=== PATIENT | male | born 1955 | race Caucasian/White ===

== ENCOUNTER 2018-03-26 05:46 | Inpatient (IN) | payer BC ==
--- NOTE | 2018-03-21 22:35 | HP ---
H&P (Free Text) History and Physical: Date of Visit: March 14, 2018 Patient Name: Andrew Argueta : 1955 Gender: male Age: 62 years Primary Care Physician: Jung Kiran MD HISTORY AND PHYSICAL CC: H&P prior to undergoing a left total knee replacement. Left knee pain. PROCEDURE: Left total knee replacement. DATE OF SURGERY: 03/26/2018 ATTENDING SURGEON: Milton Matthews MD HPI: Mr. Argueta is a pleasant 62-year-old gentleman who presents today for routine history and physical examination prior to undergoing a left total knee replacement on 03/26/[address] Matthews. The patient has been having bilateral knee pain for several years, which is worsening, and x-rays show that the patient has severe osteoarthritis. He has failed conservative treatment. He has elected to undergo a left total knee replacement by Dr. Matthews on 03/26/2018. PAST MEDICAL HISTORY: 1. Atrial fibrillation, on Coumadin. 2. Heart murmur since young adult. 3. Hypertension. 4. Morbid obesity. 5. Congestive heart failure. 6. Sleep apnea. 7. History of pulmonary embolism. 8. Proteinuria. 9. Glucose intolerance. 10. Recurrence of cellulitis on abdomen and lower extremities. 11. Aortic sclerosis. 12. Bilateral lower extremity edema. CURRENT MEDICATIONS: 1. Amlodipine 5 mg 2 tablets by mouth daily. 2. Inspra 25 mg 2 tablets by mouth every day. 3. Liseth 50 mg 2 tablets p.o. p.r.n. 4. Coumadin as directed, currently taking 11 mg daily. 5. Fluocinonide 0.05% b.i.d. to rash p.r.n. 6. CPAP. 7. Doxycycline 50 mg 1 tablet p.o. nightly. 8. Omeprazole 20 mg 1 tablet by mouth daily. 9. Ibuprofen p.r.n. 10. Vitamin D3 maximum strength 1 tablet daily. 11. Flintstones Complete Vitamins. ALLERGIES: 1. Keflex, which causes hives. 2. Fish oil, which causes hives. 3. Norvasc, which causes periodontal reaction. 4. Clindamycin. PAST SURGICAL HISTORY: 1. Adipose resection with panniculectomy, flank resections. 2. Gastric band in 2007. 3. Cholecystectomy in 2009. 4. Lap band removal in 2012. 5. Gastric sleeve in 10/2013. 6. Cataract resection in 2013. FAMILY HISTORY: Father - Lung cancer. Mother - Brain cancer. Paternal grandfather - Stroke. Paternal grandmother - Cancer. Maternal grandmother - Hypertension and diabetes. SOCIAL HISTORY: The patient is currently , living with his . 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 No smoking. No drug use. Rare alcohol use. The patient exercises regularly and is currently swimming to decrease his weight prior to his knee replacement. Date: 03/14/2018 Was the patient queried about smoking behavior? Yes No Does the patient currently smoke? Smoking: Patient has never smoked. ROS: GENERAL: Denies lightheadedness, dizziness, syncopal episodes. HEENT: Denies headaches, migraines, ear complaints. CARDIAC: Denies heart palpitations, history of atrial fibrillation, history of congestive heart failure. Denies history of [place]. PULMONARY: Positive shortness of breath with activity. No chronic cough. No history of asthma. ABDOMEN: Denies or weakness with exertion. GI: Negative for nausea, vomiting, constipation, and diarrhea. Positive for GERD. : Negative for BPH, urinary frequency, urgency, history of UTIs or kidney stones. INFECTIOUS DISEASE: History of cellulitis on abdomen. Denies MRSA, VRE, hepatitis or HIV. ENDOCRINE: Negative for thyroid disease. Positive for glucose intolerance. NEUROLOGIC: Denies paresthesias, numbness, tingling. MUSCULOSKELETAL: Positive for bilateral knee pain. HEMATOLOGIC: Positive for PE in 2003. Negative for anemia. Vitals: Ht: 75.5" Wt: 444lb 2oz Pulse: 72 BP: 156/84 Resp: 14 T: 98.0 Pain Level: 0 BMI : 54.8 EXAM: GENERAL: Well appearing, no acute distress. Alert and oriented. Appears slightly older than his stated age. Obese. HEENT: Normocephalic, atraumatic. Trachea midline. CARDIAC: Regular rate and rhythm. No murmurs, gallops or rubs. PULMONARY: Diminished lung sounds bilaterally, likely due to obesity. No crackles, rhonchi or wheezes. ABDOMEN: Obese, nontender, nondistended. BILATERAL LOWER EXTREMITIES: With mild to moderate edema, hyperpigmentation from mid calf down with multiple nodules seen. Left knee with range of motion 0 -120 degrees. No instability with valgus or varus stresses. Tenderness along the medial and lateral joint lines. Positive patellar grind. STUDIES: X-rays were obtained of the left knee and reviewed by Dr. Matthews. ASSESSMENT: Left knee end stage osteoarthritis. PLAN: The patient is currently scheduled to undergo a left knee replacement on 03/26/2018. He has undergone extensive preoperative testing. He was seen by his primary care doctor, Dr. Kiran, who cleared the patient. He will be transitioned from Coumadin to Lovenox preoperatively and will be given either Eliquis or Xarelto postoperatively. He was seen by his paper sealer, Dr. Hammond , who believed that he was at a low risk for cardiac morbidity and mortality but did recommend restarting Coumadin or Lovenox as soon as possible postoperatively, as well as watching for sleep apnea and bradycardia preoperatively and intraoperatively, and reducing his amlodipine if low blood pressures are an issue. He was also seen by Dr. Carlos due to his hyperpigmentation and skin lesions, who felt that the patient would need vein stripping after his bilateral knee replacements. Biopsies were obtained of the patient's lower extremities and returned as negative. The patient was educated to bring the CPAP with him preoperatively. He had dental work done on 2017 with no sign of infection, however to have a replaced filling.
[2018-03-26] MEDS ORDERED: Famotidine IV* 10 MG/ML 2 ML (20 mg) ONE (05:57)
[2018-03-26] MEDS ORDERED: Buffered Lidocaine 0.9% SYRIN* 5 ML/SYR SYRINGE ONE (05:57)
[2018-03-26] MEDS ORDERED: Metoclopramide TAB* 10 MG ONE (05:57)
[2018-03-26] MEDS ORDERED: Gabapentin CAP(*) 300 MG ONE (05:57)
[2018-03-26] MEDS ORDERED: Gabapentin CAP(*) 300 MG PO ONE (06:00)
[2018-03-26] MEDS ORDERED: Famotidine IV* 10 MG/ML 2 ML (20 mg) IV ONE (06:00)
[2018-03-26] MEDS ORDERED: Metoclopramide TAB* 10 MG PO ONE (06:00)
[2018-03-26] MEDS ORDERED: Buffered Lidocaine 0.9% SYRIN* 5 ML/SYR SYRINGE INTRADERM ONE (06:00)
[2018-03-26] MEDS ORDERED: VANCOMYCIN IVPB ONE ×2 (06:00)
[2018-03-26 06:48] LABS: INR 1.06 (0.77-1.02)
[2018-03-26] MEDS ORDERED: Lidocaine 2% PF * 5 ML VIAL ONE (07:07)
[2018-03-26] MEDS ORDERED: ROPIVACAINE 5 MG/ML 30 ML BTL (0.5%) ONE (07:07)
[2018-03-26] MEDS ORDERED: Propofol* 10 MG/ML 20 ML BTL IV PUSH ONE (07:07)
[2018-03-26] MEDS ORDERED: fentaNYL* 50 MCG/ML 5 ML VIAL (250 MCG VIAL) ONE ×2 (07:07→08:21)
[2018-03-26] MEDS ORDERED: Midazolam* 1 MG/ML 10 ML VIAL (10 MG) ONE (07:07)
[2018-03-26] MEDS ORDERED: Dexamethasone IV* 4 MG/ML 1 ML (4 MG) ONE (07:07)
[2018-03-26] MEDS ORDERED: Rocuronium* 10 MG/ML VIAL ONE (07:37)
[2018-03-26] MEDS ORDERED: Bupivacaine 0.5% PF 10 ML VIAL INJ ONE ×2 (08:01→08:02)
[2018-03-26] MEDS ORDERED: Lidocaine 2% EPI 1:200000 MPF*10-20 ML VIAL ONE ×2 (08:01→08:02)
[2018-03-26] MEDS ORDERED: Glycopyrrolate IV* 0.2 MG/ML 1 ML VIAL ONE (08:36)
[2018-03-26] MEDS ORDERED: EPHEDrine (Pressors)* 50 MG/ML VIAL ONE (08:36)
[2018-03-26] MEDS ORDERED: Ondansetron ODT TAB* 4 MG PO PRN (09:09)
[2018-03-26] MEDS ORDERED: Naloxone* 0.4 MG/ML 1 ML VIAL IV PRN (09:09)
[2018-03-26] MEDS ORDERED: fentaNYL* 50 MCG/ML 2 ML VIAL (100 MCG VIAL) ONE ×2 (10:28→10:56)
[2018-03-26] MEDS ORDERED: Bisacodyl SUPP* 10 MG SUPP PR PRN (10:50)
[2018-03-26] MEDS ORDERED: Magnesium Hydroxide LIQ* 30 ML UDC PO PRN (10:50)
[2018-03-26] MEDS ORDERED: diPHENhydraMINE PO* 25 MG PO PRN (10:50)
[2018-03-26] MEDS ORDERED: diPHENhydraMINE IV* 50 MG/ML 1 ml VIAL (BENADRYL) IV PRN (10:50)
[2018-03-26] MEDS ORDERED: Cyclobenzaprine TAB* 10 MG PO PRN (10:50)
[2018-03-26] MEDS ORDERED: Morphine VIAL* 4 MG/ML VIAL (1 ml vial) IV PRN ×2 (10:50)
[2018-03-26] MEDS ORDERED: HYDROmorphone INJ* 2 MG/ML CARPUJECT SYRINGE ONE (10:56)
[2018-03-26] MEDS ORDERED: Triamcinolone 0.5% OINT * 15 GM TUBE TOPICAL PRN (10:57)
[2018-03-26] MEDS: fentaNYL* 50 MCG/ML 2 ML VIAL (100 MCG VIAL) IV PRN ×2 (10:58→11:19)
[2018-03-26] MEDS ORDERED: D5W 1/2 NS 1000 ML BAG* 1,000 ML IV SCH (11:00)
[2018-03-26] MEDS ORDERED: hydrALAZINE IV* 20 MG/ML VIAL ONE (11:33)
[2018-03-26] MEDS: HYDROmorphone INJ* 1 MG/ML CARPUJECT SYRINGE IV PRN ×2 (11:38→12:24)
--- NOTE | 2018-03-26 11:38 | RAD ---
HISTORY: Status post left knee arthroplasty COMPARISONS: March 14, 2018 VIEWS: 4, Frontal and lateral views of the left knee FINDINGS: BONE DENSITY: Normal. BONES: The patient is status post left knee arthroplasty. There is no hardware failure or osteolysis. JOINTS: The patient is status post left knee arthroplasty. ALIGNMENT: There is no dislocation. SOFT TISSUES: Unremarkable. OTHER FINDINGS: None. IMPRESSION: STATUS POST LEFT KNEE ARTHROPLASTY
[2018-03-26] MEDS ORDERED: Acetaminophen TAB* 325 MG ONE (12:18)
[2018-03-26] MEDS ORDERED: traMADol TAB* 50 MG ONE (12:18)
[2018-03-26] MEDS: traMADol TAB* 50 MG PO SCH ×3 (12:19→23:45)
[2018-03-26] MEDS: Acetaminophen TAB* 325 MG PO SCH ×2 (12:19→21:39)
[2018-03-26] MEDS: Vancomycin(*) 1,000 MG in NS 0.9% 250 ML* 250 ML IVPB SCH ×2 (15:43→23:08)
[2018-03-26] MEDS: oxyCODONE TAB* 5 MG TAB PO PRN ×2 (15:43→21:40)
[2018-03-26] MEDS ORDERED: Warfarin TAB(*) 10 MG PO ONE (17:00)
[2018-03-26] MEDS: DOXYCYCLINE HYCLATE 50 MG PO SCH (17:52)
[2018-03-26] MEDS: Docusate CAP* 100 MG PO SCH (21:39)
[2018-03-26] MEDS: Magnesium Hydroxide LIQ* 30 ML UDC PO SCH (21:41)
--- NOTE | 2018-03-26 21:54 | CONS ---
CC: Dr. Matthews; Dr. Kiran; Dr. Hammond* CONSULTATION REPORT: DATE OF CONSULT: 03/26/18 TIME OF EVALUATION: 2:30 p.m. REQUESTING PHYSICIAN: Dr. Matthews. PRIMARY CARE PROVIDER: Dr. Kiran. SALES REPRESENTATIVE BUSINESS COURSES: Dr. Hammond. HISTORY OF PRESENT ILLNESS: Mr. Argueta is a 62-year-old male with a past medical history of morbid obesity, atrial fibrillation, hypertension, sleep apnea, congestive heart failure, pulmonary embolism, glucose intolerance, aortic sclerosis, who presented to [facility] on 03/26/18 for an elective left total knee replacement. The patient was seen by Dr. Hammond on 02/21/18 prior to his surgery and his recommendation was to bridge him with Lovenox before and after surgery due to risk of cardioembolic events and DVT, to resume Coumadin and Lovenox as soon as feasible from a surgical standpoint postop, to reduce his amlodipine if his blood pressures were an issue. The patient was also seen by his primary care provider (Dr. Kiran) and he felt that the patient did not have any overt signs or symptoms concerning for decompensating heart disease, and his PCP and the patient were planning to change his anticoagulation from warfarin to Eliquis as the patient thinks that the new medications are more convenient and would like to stop having the frequent blood test with warfarin. At the time of my examination, the patient states he is feeling pretty well. He denies any pain at this time, but states that "maybe I am still high from the drugs." PAST MEDICAL HISTORY: 1. Atrial fibrillation. 2. Hypertension. 3. Morbid obesity. 4. Congestive heart failure with last echocardiogram in January 2018 showing an ejection fraction of 60% to 65% with aortic sclerosis, but no stenosis. 5. History of PE. 6. Glucose intolerance. 7. Recurrent cellulitis of the abdomen and lower extremities. PAST SURGICAL HISTORY: 1. Gastric bandage in 2007. 2. Cholecystectomy in 2009. 3. Lap band removal in 2012 followed by gastric sleeve the same year. MEDICATIONS LIST: As outpatient: 1. Acetaminophen 500 mg p.o. b.i.d. 2. Amlodipine 10 mg p.o. q.a.m. 3. Cholecalciferol 5000 units p.o. q.a.m. 4. Doxycycline 50 mg p.o. q.p.m. 5. Eplerenone 50 mg p.o. q.a.m. 6. Fluocinonide cream topical b.i.d. as needed for rash in the legs. 7. Multivitamins 1 tablet p.o. daily. 8. Omeprazole 20 mg p.o. daily. The patient was bridged with Lovenox and warfarin prior to surgery. ALLERGIES: CEPHALEXIN, CLINDAMYCIN, FISH OIL, and TETRACYCLINE; the patient has hives. FAMILY HISTORY: His father had lung cancer. Mother of brain cancer. His grandfather had a stroke. Grandmother had hypertension, diabetes. SOCIAL HISTORY: The patient denies smoking or drug use. There is occasional alcohol use. The patient states that he has been swimming every day 1500 yards from Monday to Fridays. 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 REVIEW OF SYSTEMS: A 14-point review of systems performed and all the pertinent negative and positive findings are in the HPI. PHYSICAL EXAMINATION: Vital Signs: Temperature 97.2, heart rate is 63, respiratory rate is 19, oxygen saturation was 95% on 3 L nasal cannula, blood pressure is 136/72. General: The patient is a pleasant and morbidly obese male (BMI 55.5), lying in bed, in no acute distress. HEENT: Pupils are equal. Moist mucous membranes. CVS: Normal S1, S2 and he actually sounds regular at the time of my examination. Chest: Breath sounds are present bilaterally with no added sounds. Abdomen is obese. Bowel sounds are present. Extremities : There is a cryo unit on his left knee. Neuro: He is alert, awake, and oriented x3. Able to move all 4 extremities. ASSESSMENT AND PLAN: Mr. Argueta is a 62-year-old male with a past medical history of atrial fibrillation, hypertension, morbid obesity, diastolic congestive heart failure with apnea, pulmonary embolism, glucose intolerance who was admitted for an elective left total knee replacement. The hospitalist service will continue to follow with you. We recommend he continue his antihypertensives with holding parameters and the major issue at this time is his anticoagulation. The patient wishes to be transitioned from warfarin to Eliquis, but the initiation will depend on the orthopedist's decision. For his sleep apnea, the patient brought his own BiPAP from home and he will continue to use it while in the hospital. The patient is at high risk for embolic events due to his atrial fibrillation and also deep venous thrombosis and pulmonary embolism due to his prior history , so we recommend Eliquis be initiated as soon as possible. The hospitalist service will continue to follow the patient with you. TIME SPENT: Approximately 45 minutes were spent to complete this consultation. [id number]/CPS #: [id number] NITZA
--- NOTE | 2018-03-27 01:26 | PN ---
Progress Note - Progress Note Date of Service: 03/27/18 Note: Paged for HR in the mid-30's. Asymptomatic and remaining vitals are WNL.
[2018-03-27] MEDS: traMADol TAB* 50 MG PO SCH ×4 (05:35→23:01)
--- NOTE | 2018-03-27 06:29 | OP ---
DATE OF OPERATION: 03/26/18 - ROOM #353 DATE OF : 53 ATTENDING SURGEON: Milton Matthews MD CLINICAL RESOURCE MANAGER: ELZA Carlin ANESTHESIA: General endotracheal. PRE-OP DIAGNOSIS: Osteoarthritis, left knee. POST-OP DIAGNOSIS: Osteoarthritis, left knee. OPERATIVE PROCEDURE: Left total knee arthroplasty. ESTIMATED BLOOD LOSS: 250 cc. COMPLICATIONS: None. HARDWARE: Mansoor Persona #10 femur, G tibia with stem extension, 10 mm polyethylene, 41 mm all polyethylene patellar button. SUMMARY: Mr. Argueta is a 62-year-old male with a long history of bilateral knee pain. He had sought treatment for them over the years and having treated conservatively. He has some [id number] with significant end-stage arthrosis and his weight absolutely did not help. He has a BMI of over 50 and weighs about 450 pounds. He had gone through gastric procedures, and while he had lost some weight with those, he has not been declining in weight. He is concerned because he has been able to be active and exercise and so is in relatively decent health otherwise, but because of the knees, this has been starting to slow down and he was very interested in having something to fix the knee so he can continue to do exercise and at least be a heavy healthy. It had been discussed with him multiple times how his weight significantly increases his risk factors. Nonetheless, because of the limitations in his abilities, we did talk about a left total knee arthroplasty. He had seen Vascular Surgery, Cardiology as well as his Primary Care and declared optimized. I discussed with him that there is still significant risk to surgery such as infection, scar formation, stiffness, DVT, and pulmonary embolism as well as cardiac events. In addition with his weight, he may very well put more stress on the implants with increased stress on the implants. He still wished to proceed. Kira Neumann was present throughout the case and it could not have been done without an dental assistant teacher. Even with an dental assistant teacher, the case was much more difficult than usual due to his large body habitus and weight of the legs. We were all sweating and exhausted at the end of the case which took longer and was much more physically demanding than usual. DESCRIPTION OF PROCEDURE: The patient was brought to the OR and general endotracheal anesthesia was established. Left knee was prepped and then draped. Two people were needed to hold the leg because of the size of the leg. Tourniquet was placed over the proximal left thigh and a 44 tourniquet needed to be used and this just made it around, was only used during the cementing process and even then after approximately 5 to 6 minutes, it acted more as a venous tourniquet and was let down before the cement had fully hardened. Total tourniquet time would be 12 minutes. Once the knee was prepped and then draped , skin over the incision area was infiltrated using 0.5% Marcaine with lidocaine with epinephrine. 20 cc were used in the incision line, 20 cc were used on the back side of the knee, and then 10 cc were used in each of the gutters. Incision was made centered about where I thought I could feel the patella, was carried down through the skin and subcutaneous fat. Small bleeders encountered were ligated using electrocautery. Extensor mechanism was exposed and a sharp parapatellar arthrotomy was made. Several large vessels were cut with this and electrocautery was used to cauterize them and try and staunch the flow of blood. Fat pad was sharply excised. With sharply elevating the vessels from the medial side of the tibia, another large vessel was cut and then this was packed. Packing was allowed to remain as I continued to work onwards. Patella measured 28 mm in thickness and I had taken a nice short 6 mm cut, and then with the second cut, the clamps had slid and it ended up being an oblique cut. It did, however, leave approximately 18 mm of patella. Patella was then subluxated laterally and the knee was flexed up. Step drill was used to open the femoral canal and intramedullary guide was placed. Guide was adjusted until it was parallel to the epicondyles and then pinned into place. Distal femoral cutting guide was then pinned into place. This had been set at 2 mm of resection with a 4-degree angle. Distal femoral cut was taken and it appeared a good cut was obtained that took a nice amount of medial bone leaving a lot of lateral bone. Femur was sized and it sat nicely for 10 holes were drilled but with a cutting block that was still set to low and this needed to be moved up by 2 mm. Now with the superior hole being drilled, this drilled nicely and the anterior and posterior femoral cuts followed by the chamfer cuts were taken. Attention was turned to the tibia. Step drill was used in the tibia to open the tibial canal and the intramedullary guide was placed. Outrigger was adjusted and positioned until it appeared it would take 2 mm from the worn medial side. Tibial cut was then taken and it appeared a nice cut was obtained. Spacer block was placed as well as a drop tiny, and with the knee flexed and the drop tiny and the spacer block, the tibial cut was perfect coming right down the anterior spine of the tibia pointing towards the base of the second metatarsal. On the femoral side, however, this sat nicely medially but had some very specific play to varus and valgus stress. It could be seen where I needed to cut 3 mm from the medial side. It was very tight in flexion as well. Femoral cut was then re-cut by hand, and with a 12-block, he sat in snuggly and switching back down to the 10, this sat in quite well and I was very pleased with his alignment. Similarly in flexion, he also sat quite well and I thought he was nicely balanced. Femur was then re-cut using the cutting block to re-cut the chamfers. Tibia was sized and a G sat very nicely. Hole was drilled and then punched. Osteophytes were taken down from the medial side as well. Femur was placed and the notch cut was finished and the stud holes were drilled. It was trialed with a 10 and came out nicely until full extension and flexed quite well limited by his body habitus. Patella usually sat nicely on the top, but occasionally would flip over the side. Patella was sized and a 41 sat nicely. Holes were drilled and trial was snapped into place. This helped with the patella tracking. Trial instrumentation was removed and the knee was copiously pulse lavaged. Cement was being prepared. Esmarch was used to exsanguinate the leg and the tourniquet was raised. Parts were being cemented in, but it could be seen how blood was still starting to pool and tourniquet was eventually let down. Tibia followed by femur and patella were all cemented into place. Excess cement was removed. When the cement had hardened, the knee was searched for additional cement. Few small pieces were found. The tibia actually had seemed to fit differently from where he was punched, but considering where the tibia had been punched where he was seated appeared to be acceptable. He was trialed with a 10 and I had difficulty seating this, but the 10 appeared to fit well. The knee was again copiously pulse lavaged and 10 polyethylene was then snapped into place. He had the same wonderful motion being able to lock out in a full extension, flexed easily and was very stable throughout. The knee was again copiously pulse lavaged. Parapatellar arthrotomy was repaired using interrupted #1 Vicryl sutures. Subcutaneous tissues were again pulse lavaged and subcutaneous tissues were approximated with 2-0 Vicryl. Skin was closed using valerie. Sterile dressing and a cryo/Cuff were applied in the OR. The patient was then extubated in the OR and was stable on transfer to the recovery room. [id number]/CPS #: [id number] NITZA
[2018-03-27 06:47] LABS: Hematocrit 39 % (42-52); Hemoglobin 13.4 g/dl (14.0-18.0); Mean Platelet Volume 7.9 um3 (7.4-10.4); Platelet Count 161 10^3/ul (150-450)
[2018-03-27 06:51] LABS: INR 1.02 (0.77-1.02)
[2018-03-27 07:00] LABS: EGFR Non-African American 87.5 (>60)
[2018-03-27] MEDS: Vancomycin(*) 1,000 MG in NS 0.9% 250 ML* 250 ML IVPB SCH (07:07)
[2018-03-27] MEDS: oxyCODONE TAB* 5 MG TAB PO PRN ×2 (07:09→12:32)
[2018-03-27] MEDS: Magnesium Hydroxide LIQ* 30 ML UDC PO SCH ×2 (08:07→23:02)
[2018-03-27] MEDS: Omeprazole CAP* 20 MG PO SCH (08:07)
[2018-03-27] MEDS: Prenatal Vitamin TAB PO SCH (08:07)
[2018-03-27] MEDS: Docusate CAP* 100 MG PO SCH ×2 (08:07→23:00)
[2018-03-27] MEDS: Cholecalciferol TAB* 1000 UNITS PO SCH (08:07)
[2018-03-27] MEDS: Acetaminophen TAB* 325 MG PO SCH ×3 (08:08→23:01)
[2018-03-27] MEDS ORDERED: amLODIPine TAB* 5 MG PO SCH ×2 (09:00)
--- NOTE | 2018-03-27 09:06 | PN ---
Progress Note - Progress Note Date of Service: 03/27/18 SOAP: Subjective: []Patient seen OOB in chair. He is feeling well with 2-3/10 left knee pain. He denies chest pain, shortness of breath, dizziness, nausea, leg numbness, chills. Overnight patient had low heart rates into the 40's but was asymptomatic. He wears a smart watch which monitors his heart rate, he reports his heart rate is generally low, in the 50's on average. Objective: [] Vital Signs Temp 97.5 F 03/27/18 04:22 Pulse 43 03/27/18 07:34 Resp 16 03/27/18 08:10 BP 119/66 03/27/18 07:34 Pulse Ox 97 03/27/18 07:34 Intake & Output 03/26/18 03/27/18 03/27/18 18:59 06:59 18:59 Intake Total 2325 2760 Output Total 800 1650 350 Balance 1525 1110 -350 Intake: IV Fluids 1950 1230 D5W 1/2 NS 972 lr 1950 vanco 258 IVPB 275 vanco 275 Oral 100 1530 Output: Urine 350 Fernandez 550 1650 Estimated Blood Loss 250 Other: # Bowel Movements 0 Laboratory Last Values Hgb 13.4 g/dl (14.0-18.0) L 03/27/18 06:10 Hct 39 % (42-52) L 03/27/18 06:10 Plt Count 161 10^3/ul (150-450) 03/27/18 06:10 MPV 7.9 um3 (7.4-10.4) 03/27/18 06:10 INR (Anticoag Therapy) 1.02 (0.77-1.02) 03/27/18 06:10 APTT 37.1 seconds (26.0-36.3) H 03/26/18 06:22 Sodium 132 mmol/L (139-145) L 03/27/18 06:10 Potassium 4.9 mmol/L (3.5-5.0) 03/27/18 06:10 Chloride 101 mmol/L (101-111) 03/27/18 06:10 Carbon Dioxide 26 mmol/L (22-32) 03/27/18 06:10 Anion Gap 5 mmol/L (2-11) 03/27/18 06:10 BUN 21 mg/dL (6-24) 03/27/18 06:10 Creatinine 0.88 mg/dL (0.67-1.17) 03/27/18 06:10 Est GFR ( Amer) 112.5 (>60) 03/27/18 06:10 Est GFR (Non-Af Amer) 87.5 (>60) 03/27/18 06:10 BUN/Creatinine Ratio 23.9 (8-20) H 03/27/18 06:10 Glucose 172 mg/dL (70-100) H 03/27/18 06:10 Calcium 8.7 mg/dL (8.6-10.3) 03/27/18 06:10 General: Well appearing, NAD, sitting comfortably in chair LLE: Left knee cryo unit in use. Dressing is pulling down the leg with mild bloody discharge. New dressing placed with betadyne, telfa, abd's, mayco. Incision with well approximated wound edges, CDI, no surrounding erythema. DF/ PF intact. DP pulse 2+. Sensation intact distally. BL LE: Calves supple and nontender without erythema, edema or palpable cords. Assessment: []POD 1 sp left total knee arthroplasty, Dr Matthews Plan: []WBAT PT/OT Lovenox POD 1 and POD 2, then transition to eliquis 5 mg PO BID For dvt/pe prophylaxis as well as a fib Appreciate medicine comanagement
[2018-03-27] MEDS: CMCS - Epleronone (NF) 25 MG TAB PO SCH (11:55)
[2018-03-27] MEDS ORDERED: Heparin VIAL(*) 5000 UNITS/ML VIAL (FIVE THOUSAND) SUBCUT SCH (12:00)
[2018-03-27] MEDS: Enoxaparin(*) 40 MG/0.4 ML SYR SUBCUT SCH (12:32)
[2018-03-27 17:43] LABS: EGFR Non-African American 73.8 (>60)
[2018-03-27] MEDS: DOXYCYCLINE HYCLATE 50 MG PO SCH (17:54)
--- NOTE | 2018-03-27 17:54 | PN ---
Subjective Date of Service: 03/27/18 Interval History: Patient was seen and examined earlier today. I have received multiple calls regarding patient's bradycardia. He denies any symptoms at all. He informed me that he is known to have a "slow heart rate" at rest, usually in 40s or 50s. 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 He denies any chest pain, SOB, dizziness, headache or weakness. Minimal left knee pain, tolerated with pain meds. He was up doing PT earlier today. Fernandez catheter was d/c'ed earlier. He has no complaints today. Family History: Unchanged from Admission Social History: Unchanged from Admission Past Medical History: Unchanged from Admission Objective Active Medications: Acetaminophen (Tylenol Tab*) 1,000 mg PO TID [facility]END[facility] TO [facility] Last Admin: 03/27/18 15:03 Dose: 975 mg Amlodipine Besylate (Norvasc Tab*) 10 mg PO QAM [facility] Last Admin: 03/27/18 11:55 Dose: Not Given Apixaban (Eliquis*) 5 mg PO BID [facility]END[facility] TO [facility] Bisacodyl (Dulcolax Supp*) 10 mg [place] DAILY PRN PRN Reason: constipation Cholecalciferol (Vitamin D Tab*) 5,000 units PO QAM [facility] TO [facility] Last Admin: 03/27/18 08:07 Dose: 5,000 units Cyclobenzaprine HCl (Flexeril Tab*) 10 mg PO TID PRN PRN Reason: SPASMS Diphenhydramine HCl (Benadryl Iv*) 25 mg IV Q6H PRN PRN Reason: itching Diphenhydramine HCl (Benadryl Po*) 25 mg PO Q6H PRN PRN Reason: itching Docusate Sodium (Colace Cap*) 100 mg PO BID [facility] TO [facility] Last Admin: 03/27/18 08:07 Dose: 100 mg Doxycycline Hyclate (Doxycycline Hyclate) 50 mg PO QPM [facility] Last Admin: 03/26/18 17:52 Dose: 50 mg Enoxaparin Sodium (Lovenox(*)) 40 mg SUBCUT Q24H [facility] Stop: 03/29/18 06:00 Last Admin: 03/27/18 12:32 Dose: 40 mg Eplerenone (Inspra (Nf)) 50 mg PO QAM [facility] PRN Reason: Protocol Last Admin: 03/27/18 11:55 Dose: Not Given Dextrose/Sodium Chloride (D5w 1/2 Ns 1000 Ml Bag*) 1,000 mls @ 100 mls/hr IV PER RATE PEND[facility] SALE TO [facility] Last Admin: 03/27/18 02:35 Dose: 100 mls/hr Magnesium Hydroxide (Milk Of Magnesia Liq*) 30 ml PO BID [facility]END[facility] TO [facility] Last Admin: 03/27/18 08:07 Dose: 30 ml Magnesium Hydroxide (Milk Of Magnesia Liq*) 30 ml PO Q6H PRN PRN Reason: constipation Morphine Sulfate (Morphine Vial*) 2 mg IV Q2H PRN PRN Reason: PAIN - BREAKTHROUGH Morphine Sulfate (Morphine Vial*) 4 mg IV Q2H PRN PRN Reason: PAIN - UNRELIEVED Multivitamins ( Vitamin Tab*) [facility] [place] Last Admin: 03/27/18 08:07 Dose: 1 tab Omeprazole (Prilosec Cap*) 20 mg PO DAILY@0730 [facility] Last Admin: 03/27/18 08:07 Dose: 20 mg Oxycodone HCl (Roxycodone Tab*) 10 mg PO Q4H PRN PRN Reason: PAIN - SEVERE Last Admin: 03/27/18 12:32 Dose: 10 mg Tramadol HCl (Ultram*) 50 mg PO Q6H [facility]END[facility] S[facility] TO [facility] Last Admin: 03/27/18 12:32 Dose: 50 mg Triamcinolone Acetonide (Triamcinolone 0.5% Oint *) 1 applic TOPICAL BID PRN PRN Reason: bilat legs Vital Signs - 8 hr 03/27/18 03/27/18 03/27/18 11:23 12:32 14:30 Temperature 97.6 F Pulse Rate 45 Respiratory 15 16 16 Rate Blood Pressure 121/57 (mmHg) O2 Sat by Pulse 100 Oximetry 03/27/18 03/27/18 03/27/18 14:40 15:47 16:00 Temperature 97.6 F Pulse Rate 34 Respiratory 16 16 Rate Blood Pressure 109/45 (mmHg) O2 Sat by Pulse 98 98 Oximetry Oxygen Devices in Use Now: None Appearance: Morbidly obese male, sitting on chair, appears comfortable and in NAD Eyes: No Scleral Icterus, PERRLA Ears/Nose/Mouth/Throat: Clear Oropharnyx, Mucous Membranes Moist Neck: NL Appearance and Movements; NL JVP, Trachea Midline Respiratory: Symmetrical Chest Expansion and Respiratory Effort, Clear to Auscultation Cardiovascular: NL Sounds; No Murmurs; No JVD, - - sinus bhaskar cardia with regular rhythm Abdominal: NL Sounds; No Tenderness; No Distention Extremities: No Edema, No Clubbing, Cyanosis, - - Left knee with clean PEÑA wrap and cooling device. No distal swelling noted. Skin: No Rash or Ulcers Neurological: Alert and Oriented x 3, NL Sensation, NL Muscle Strength and Tone Nutrition: Taking PO's Result Diagrams: 03/27/18 06:10 03/27/18 17:19 Additional Lab and Data: . Microbiology and Other Data: . Diagnostic Imaging: . EKG Data: EKG INTERPRETATION ECG Report Patient Name OMEGA ARGUETA Birthdate 1955 Sex M Order Number [id number] Date of ECG 03/26/2018 16:56:27 Interpretation Atrial fibrillation .V-rate 46- 69. Borderline prolonged QT interval.QTc >475mS - BORDERLINE ECG - Anterior R waves now upright. OTHERWISE NO SIGNIFICANT CHANGES SINCE THE PREVIOUS RECORD OF 12 Lead 11/08/2013 08:01:50 Electronically signed on 03/26/2018 at 20:45 by Rebekah Zepeda MD Assess/Plan/Problems-Billing Assessment: Mr. Argueta is a 62 y/o male with PMHx HTN, A-fib, diastolic congestive heart failure, morbid obesity and pulmonary embolism, who is POD#1, s/p elective left total knee replacement. - Patient Problems (1) Atrial fibrillation Current Visit: Yes Status: Acute Comment: - Rate controlled - Appears to be at baseline bradycardia per patient, and looking into his records from veterinary surgeon office and Halter monitor - BMP and Troponin checked, no evidence of lyte abnormalities - He is being bridged with Lovenox, Eliquis started as well (2) Hypertension Current Visit: Yes Status: Acute Comment: - Continue Amlodipine - Hold Epleronone for bradycardia - BP has been stable (3) Hx pulmonary embolism Current Visit: Yes Status: Acute Comment: - Patient at high risk for DVT due to morbid obesity, recent surgery - Continue bridging with Lovenox until ready for d/c to home on Eliquis (4) Morbid obesity Current Visit: Yes Status: Acute Comment: - Supportive care - He is s/p sleeve gastrectomy (5) Sleep apnea Current Visit: Yes Status: Acute Comment: - Continue Bi-PAP used at home (6) History of total left knee replacement Current Visit: Yes Status: Acute Comment: - Management per ortho team - PT/OT (7) DVT prophylaxis Current Visit: Yes Status: Acute Comment: - On subQ Lovenox and PO Eliquis (8) Full code status Current Visit: Yes Status: Acute Status and Disposition: Inpatient. Anticipate discharge per ortho team when medically stable
--- NOTE | 2018-03-28 04:48 | PN ---
Progress Note - Progress Note Date of Service: 03/28/18 Note: Paged for 3.8 second pause. Patient asymptomatic. Will d/c amlodipine and continue to monitor
[2018-03-28 05:35] LABS: Hematocrit 37 % (42-52); Hemoglobin 12.4 g/dl (14.0-18.0); Mean Platelet Volume 8.5 um3 (7.4-10.4); Platelet Count 144 10^3/ul (150-450)
[2018-03-28 05:53] LABS: INR 0.98 (0.77-1.02)
[2018-03-28] MEDS: traMADol TAB* 50 MG PO SCH ×4 (05:54→22:55)
--- NOTE | 2018-03-28 08:52 | PN ---
Progress Note - Progress Note Date of Service: 03/28/18 SOAP: Subjective: []Patient seen at bedside. He is feeling well with no chest pain, shortness of breath, dizziness, lightheadedness, nausea or leg numbness. Objective: [] Vital Signs Temp 97.6 F 03/28/18 07:40 Pulse 69 03/28/18 07:40 Resp 18 03/28/18 07:40 BP 105/55 03/28/18 07:40 Pulse Ox 98 03/28/18 07:40 Intake & Output 03/27/18 03/28/18 03/28/18 18:59 06:59 18:59 Intake Total 1802 1200 Output Total 1250 2525 Balance 552 -1325 Weight 457 lb Intake: IV Fluids 504 D5W 1/ NS 504 IVPB 258 vanco 258 Oral 1040 1200 Output: Urine 1250 2525 Other: # Bowel Movements 0 # Voids 3 Laboratory Last Values Hgb 12.4 g/dl (14.0-18.0) L 03/28/18 04:57 Hct 37 % (42-52) L 03/28/18 04:57 Plt Count 144 10^3/ul (150-450) L 03/28/18 04:57 MPV 8.5 um3 (7.4-10.4) 03/28/18 04:57 INR (Anticoag Therapy) 0.98 (0.77-1.02) 03/28/18 04:57 APTT 37.1 seconds (26.0-36.3) H 03/26/18 06:22 Sodium 131 mmol/L (139-145) L 03/27/18 17:19 Potassium 5.0 mmol/L (3.5-5.0) 03/27/18 17:19 Chloride 99 mmol/L (101-111) L 03/27/18 17:19 Carbon Dioxide 27 mmol/L (22-32) 03/27/18 17:19 Anion Gap 5 mmol/L (2-11) 03/27/18 17:19 BUN 23 mg/dL (6-24) 03/27/18 17:19 Creatinine 1.02 mg/dL (0.67-1.17) 03/27/18 17:19 Est GFR ( Amer) 94.9 (>60) 03/27/18 17:19 Est GFR (Non-Af Amer) 73.8 (>60) 03/27/18 17:19 BUN/Creatinine Ratio 22.5 (8-20) H 03/27/18 17:19 Glucose 136 mg/dL (70-100) H 03/27/18 17:19 Calcium 8.3 mg/dL (8.6-10.3) L 03/27/18 17:19 Troponin I 0.00 ng/mL (<0.04) 03/27/18 17:19 General: Well appearing, NAD, sitting comfortably in chair LLE: Left knee cryo unit in use. Dressing with mild bloody discharge. Incision CDI with well approximated wound edges,no discharge and no surrounding erythema. New dressing placed with betadyne, telfa, abd's, mayco. DF/PF intact. DP pulse 2+. Sensation intact distally. Posterior leg with superficial skin tear that that bled easily, dressed with telfa and abd. BL LE: Calves supple and nontender without erythema, edema or palpable cords. Assessment: []POD 2 sp left total knee arthroplasty, Dr Matthews Plan: []WBAT PT/OT Lovenox POD 1 and POD 2, then transition to eliquis 5 mg PO BID For dvt/pe prophylaxis as well as a fib Daily dressing changes Appreciate medicine comanagement Plan for DC home tomorrow
[2018-03-28] MEDS: Omeprazole CAP* 20 MG PO SCH (09:06)
[2018-03-28] MEDS: Acetaminophen TAB* 325 MG PO SCH ×3 (09:06→20:51)
[2018-03-28] MEDS: Cholecalciferol TAB* 1000 UNITS PO SCH (09:06)
[2018-03-28] MEDS: Magnesium Hydroxide LIQ* 30 ML UDC PO SCH ×2 (09:06→20:51)
[2018-03-28] MEDS: oxyCODONE TAB* 5 MG TAB PO PRN (09:08)
[2018-03-28] MEDS: Docusate CAP* 100 MG PO SCH ×2 (09:10→20:52)
[2018-03-28] MEDS: CMCS - Epleronone (NF) 25 MG TAB PO SCH (09:59)
[2018-03-28] MEDS: Prenatal Vitamin TAB PO SCH (10:54)
[2018-03-28] MEDS: Enoxaparin(*) 40 MG/0.4 ML SYR SUBCUT SCH (12:04)
--- NOTE | 2018-03-28 17:00 | PN ---
Subjective Date of Service: 03/28/18 Interval History: Patient was seen and examined at bedside earlier today. Events noted from last night, continues to have >2 seconds pause at times, totally asymptomatic. He feels well today, has no complaints. Finished his PT, looking forward to discharge tomorrow. Denies dizziness, headaches, chest pain or SOB. Has no complaints today. Family History: Unchanged from Admission Social History: Unchanged from Admission Past Medical History: Unchanged from Admission Objective Active Medications: Acetaminophen (Tylenol Tab*) 1,000 mg PO TID [facility] Last Admin: 03/28/18 14:31 Dose: 975 mg Apixaban (Eliquis*) 5 mg PO BID [facility] Bisacodyl (Dulcolax Supp*) 10 mg [place] DAILY PRN PRN Reason: constipation Cholecalciferol (Vitamin D Tab*) 5,000 units PO QAM [facility] Last Admin: 03/28/18 09:06 Dose: 5,000 units Cyclobenzaprine HCl (Flexeril Tab*) 10 mg PO TID PRN PRN Reason: SPASMS Diphenhydramine HCl (Benadryl Iv*) 25 mg IV Q6H PRN PRN Reason: itching Diphenhydramine HCl (Benadryl Po*) 25 mg PO Q6H PRN PRN Reason: itching Docusate Sodium (Colace Cap*) 100 mg PO BID [facility] Last Admin: 03/28/18 09:10 Dose: 100 mg Doxycycline Hyclate (Doxycycline Hyclate) 50 mg PO QPM [facility] Last Admin: 03/27/18 17:54 Dose: 50 mg Enoxaparin Sodium (Lovenox(*)) 40 mg SUBCUT Q24H [facility] Stop: 03/29/18 06:00 Last Admin: 03/28/18 12:04 Dose: 40 mg Eplerenone (Inspra (Nf)) 50 mg PO QAM [facility] PRN Reason: Protocol Last Admin: 03/28/18 09:59 Dose: Not Given Dextrose/Sodium Chloride (D5w 1/2 Ns 1000 Ml Bag*) 1,000 mls @ 100 mls/hr IV PER RATE [facility] Last Admin: 03/27/18 02:35 Dose: 100 mls/hr Magnesium Hydroxide (Milk Of Magnesia Liq*) 30 ml PO BID [facility] Last Admin: 03/28/18 09:06 Dose: 30 ml Magnesium Hydroxide (Milk Of Magnesia Liq*) 30 ml PO Q6H PRN PRN Reason: constipation Morphine Sulfate (Morphine Vial*) 2 mg IV Q2H PRN PRN Reason: PAIN - BREAKTHROUGH Morphine Sulfate (Morphine Vial*) 4 mg IV Q2H PRN PRN Reason: PAIN - UNRELIEVED Multivitamins ( Vitamin Tab*) 1 tab PO QAM [facility] Last Admin: 03/28/18 10:54 Dose: 1 tab Omeprazole (Prilosec Cap*) 20 mg PO DAILY@0730 [facility] Last Admin: 03/28/18 09:06 Dose: 20 mg Oxycodone HCl (Roxycodone Tab*) 10 mg PO Q4H PRN PRN Reason: PAIN - SEVERE Last Admin: 03/28/18 09:08 Dose: 10 mg Tramadol HCl (Ultram*) 50 mg PO Q6H [facility] Last Admin: 03/28/18 10:54 Dose: 50 mg Triamcinolone Acetonide (Triamcinolone 0.5% Oint *) 1 applic TOPICAL BID PRN PRN Reason: bilat legs Vital Signs - 8 hr 03/28/18 03/28/18 03/28/18 09:08 10:54 11:10 Temperature 97.8 F Pulse Rate 47 Respiratory 16 18 16 Rate Blood Pressure 98/50 (mmHg) O2 Sat by Pulse 96 Oximetry 03/28/18 03/28/18 15:51 16:00 Temperature 97.3 F Pulse Rate 39 Respiratory 16 Rate Blood Pressure 111/65 (mmHg) O2 Sat by Pulse 99 Oximetry Oxygen Devices in Use Now: None Appearance: Morbidly obese male, appears comfortable and in NAD. Eyes: No Scleral Icterus, PERRLA Ears/Nose/Mouth/Throat: Clear Oropharnyx, Mucous Membranes Moist Neck: NL Appearance and Movements; NL JVP, Trachea Midline Respiratory: Symmetrical Chest Expansion and Respiratory Effort, Clear to Auscultation Cardiovascular: NL Sounds; No Murmurs; No JVD, - - sinus bhaskar with regular rhythm. Abdominal: NL Sounds; No Tenderness; No Distention Extremities: - - Chronic distal bilateral dark pigmentation likely secondary to venous stasis. Neurological: Alert and Oriented x 3, NL Sensation, NL Muscle Strength and Tone Nutrition: Taking PO's Result Diagrams: 03/28/18 04:57 03/27/18 17:19 Additional Lab and Data: . Microbiology and Other Data: . Diagnostic Imaging: . EKG Data: . Assess/Plan/Problems-Billing Assessment: Mr. Argueta is a 62 y/o male with PMHx HTN, A-fib, diastolic congestive heart failure, morbid obesity and pulmonary embolism, who is POD#1, s/p elective left total knee replacement. - Patient Problems (1) Atrial fibrillation Current Visit: Yes Status: Acute Comment: - Rate controlled - Appears to be at baseline bradycardia per patient, and looking into his records from tree surgeon helper office and Halter monitor - BMP and Troponin checked, no evidence of lyte abnormalities - He is being bridged with Lovenox, Eliquis starting tomorrow priro to d/c to home (2) Hypertension Current Visit: Yes Status: Acute Comment: - Hypotensive and bradycardiac, but asymptomatic - Hold Epleronone for bradycardia, Amlodipine on hols since last night too - BP has been stable (3) Hx pulmonary embolism Current Visit: Yes Status: Acute Comment: - Patient at highest risk for DVT due to morbid obesity, recent surgery - Continue bridging with Lovenox until ready for d/c to home on Eliquis (4) Morbid obesity Current Visit: Yes Status: Acute Comment: - Supportive care - He is s/p sleeve gastrectomy (5) Sleep apnea Current Visit: Yes Status: Acute Comment: - Continue Bi-PAP used at home (6) History of total left knee replacement Current Visit: Yes Status: Acute Comment: - Management per ortho team - PT/OT (7) DVT prophylaxis Current Visit: Yes Status: Acute Comment: - On subQ Lovenox and PO Eliquis to start tomorrow (8) Full code status Current Visit: Yes Status: Acute Status and Disposition: Inpatient. Anticipate discharge per ortho team when medically stable
[2018-03-28] MEDS: DOXYCYCLINE HYCLATE 50 MG PO SCH (17:21)
[2018-03-29 05:49] LABS: Hematocrit 37 % (42-52); Hemoglobin 12.3 g/dl (14.0-18.0); Mean Platelet Volume 8.4 um3 (7.4-10.4); Platelet Count 140 10^3/ul (150-450)
[2018-03-29 05:52] LABS: INR 0.96 (0.77-1.02)
[2018-03-29] MEDS: traMADol TAB* 50 MG PO SCH ×4 (07:02→14:38)
[2018-03-29] MEDS: Omeprazole CAP* 20 MG PO SCH (07:26)
[2018-03-29] MEDS: CMCS - Epleronone (NF) 25 MG TAB PO SCH (09:04)
[2018-03-29] MEDS: Prenatal Vitamin TAB PO SCH (09:05)
[2018-03-29] MEDS: Magnesium Hydroxide LIQ* 30 ML UDC PO SCH (09:05)
[2018-03-29] MEDS: oxyCODONE TAB* 5 MG TAB PO PRN (09:05)
[2018-03-29] MEDS: Cholecalciferol TAB* 1000 UNITS PO SCH (09:05)
[2018-03-29] MEDS: Acetaminophen TAB* 325 MG PO SCH ×2 (09:05→14:38)
[2018-03-29] MEDS: Docusate CAP* 100 MG PO SCH (09:06)
--- NOTE | 2018-03-29 10:44 | PN ---
Progress Note - Progress Note Date of Service: 03/29/18 SOAP: Subjective: []Patient seen OOB in chair. Denies CP, SOB, dizziness, nausea or leg numbness. Left knee pain is well controlled and patient desires discharge home. Objective: [] Vital Signs Temp 97.9 F 03/29/18 07:42 Pulse 48 03/29/18 07:42 Resp 18 03/29/18 10:16 BP 131/67 03/29/18 07:42 Pulse Ox 97 03/29/18 08:00 Intake & Output 03/28/18 03/29/18 03/29/18 18:59 06:59 18:59 Intake Total 960 425 Output Total 975 1625 500 Balance -975 -665 -64 Intake: Oral 960 425 Output: Urine 975 1625 500 Other: Estimated Void Small Small # Bowel Movements 1 Estimated Stool Amount Medium # Voids 1 1 Laboratory Last Values Hgb 12.3 g/dl (14.0-18.0) L 03/29/18 05:01 Hct 37 % (42-52) L 03/29/18 05:01 Plt Count 140 10^3/ul (150-450) L 03/29/18 05:01 MPV 8.4 um3 (7.4-10.4) 03/29/18 05:01 INR (Anticoag Therapy) 0.96 (0.77-1.02) 03/29/18 05:01 APTT 37.1 seconds (26.0-36.3) H 03/26/18 06:22 Sodium 131 mmol/L (139-145) L 03/27/18 17:19 Potassium 5.0 mmol/L (3.5-5.0) 03/27/18 17:19 Chloride 99 mmol/L (101-111) L 03/27/18 17:19 Carbon Dioxide 27 mmol/L (22-32) 03/27/18 17:19 Anion Gap 5 mmol/L (2-11) 03/27/18 17:19 BUN 23 mg/dL (6-24) 03/27/18 17:19 Creatinine 1.02 mg/dL (0.67-1.17) 03/27/18 17:19 Est GFR ( Amer) 94.9 (>60) 03/27/18 17:19 Est GFR (Non-Af Amer) 73.8 (>60) 03/27/18 17:19 BUN/Creatinine Ratio 22.5 (8-20) H 03/27/18 17:19 Glucose 136 mg/dL (70-100) H 03/27/18 17:19 Calcium 8.3 mg/dL (8.6-10.3) L 03/27/18 17:19 Troponin I 0.00 ng/mL (<0.04) 03/27/18 17:19 General: Well appearing, NAD, sitting comfortably in chair LLE: Left knee cryo unit in use. Dressing CDI. Incision CDI with well approximated wound edges,no discharge and no surrounding erythema. New dressing placed with betadyne, telfa, abd's, mendez. DF/PF intact. DP pulse 2+. Sensation intact distally. Skin tear no longer bleeding, dressed with antibiotic ointment and gauze. BL LE: Calves supple and nontender without erythema, edema or palpable cords. Assessment: []POD 3 sp left total knee arthroplasty, Dr Matthews Plan: []WBAT PT/OT Lovenox POD 1 and POD 2, then transition to eliquis 5 mg PO BID For dvt/pe prophylaxis as well as a fib Daily dressing changes. Incision no longer bleeding. Mendez bandage does continuously fall down, difficult to keep up with leg shape. Patient instructed to wrap mendez up into groin in order to keep in place. Appreciate medicine comanagement Plan for DC home today
[2018-03-29] MEDS ORDERED: Apixaban* 5 MG TAB PO SCH (12:00)
[2018-03-29 13:02] VITALS: BP 120/52
--- NOTE | 2018-03-30 12:27 | DS ---
DISCHARGE SUMMARY: DATE OF ADMISSION: 03/26/18 DATE OF DISCHARGE: 03/29/18 DATE OF OPERATION: 03/26/18 PROVIDER: Dr. Milton Matthews.* (DICTATED BY ELZA CARLIN) TRAFFIC RECORDER: ELZA Carlin. OPERATIVE PROCEDURE: Left total knee arthroplasty. HISTORY: Mr. Argueta is a 62-year-old male with a long history of bilateral knee pain. He did seek out conservative treatment over the years. He has some bone-on- bone arthritis with significant end-stage arthrosis and his high weight has also been an issue. He has a BMI of over 50 and weighs about 450 pounds. He has gone through gastric procedures with which he has lost some weight, but has not been declining in weight since. He has had difficulty remaining active due to knee pain and has elected to undergo a left total knee arthroplasty. HOSPITAL COURSE: The patient was admitted to [facility] on . He underwent a left total knee arthroplasty without complication. The patient recovered briefly in the PACU and then was transferred to the short- stay surgical unit in stable condition. He was seen by a hospitalist team during his stay. He did have several episodes of bradycardia with his heart rate dropping into the mid 30s. The patient was asymptomatic and the remaining vital signs were within normal limits. The patient also has 2- and 3-second pauses of his heart primarily during sleep. During his stay, his episodes of bradycardia had been asymptomatic and on postop day 1, he was well appearing, in no acute distress. He did have significant bleeding through his dressing though the incision remained intact with well approximated wound edges. Postop day 2, the patient continued to have bleeding through his dressing, again incision clean, dry, and intact with well approximated wound edges. He had a superficial skin tear on the posterior leg that bleed quite easily, dressed with antibiotic ointment, Telfa and ABD. DP pulse 2+. Dorsiflexion and plantarflexion intact. Sensation intact distally. Postop day 3, the patient was seen out of bed in chair. His incision was no longer oozing blood. His dressing was for the most part dry. Incision clean, dry, and intact. Skin tear on the posterior leg no longer bleeding. Hemoglobin 12.3, hematocrit 37. INR is 0.96. Temperature 97.9, pulse 48, blood pressure 131/67, respiratory rate 18, and pulse ox 97. His DVT prophylaxis on postop day 1 and 2 with Lovenox 40 mg daily. On postop day 3, he was switched over to Eliquis 5 mg p.o. b.i.d. for DVT prophylaxis and PE prophylaxis, as well as for chronic AFib management. He was deemed to be medically and orthopedically stable for discharge home. DISCHARGE MEDICATIONS: 1. Lidex 0.05% cream 1 topical application b.i.d. p.r.n. 2. Multivitamin 1 tab p.o. q.a.m. 3. Coumadin has been discontinued at home. 4. Amlodipine 10 mg p.o. q.a.m. 5. Acetaminophen 500 mg p.o. b.i.d. 6. Vitamin D3 5000 units p.o. q.a.m. 7. Omeprazole 20 mg p.o. q.a.m. 8. Inspra 50 mg p.o. q.a.m. 9. Doxycycline 50 mg p.o. q.p.m. 10. Lovenox has been discontinued at home. New Medications: 1. Acetaminophen 975 mg p.o. t.i.d. p.r.n. pain. 2. Eliquis 5 mg p.o. b.i.d. 3. Docusate 100 mg p.o. b.i.d. 4. Oxycodone 5 mg tab 1 to 2 tabs every 4 hours as needed for pain, max daily dose of 4. 5. Tramadol 50 mg every 6 hours, max daily dose of 6. DISCHARGE PLAN: Weightbearing as tolerated. Okay to shower after third postoperative day. No bathing, swimming or submerging the wound. Call the orthopedic office for increased drainage, continued bleeding, redness, increased pain or fever. Diet, regular diet. Continue physical therapy and occupational therapy exercises as shown. Visiting home nurses to remove valerie in 10 to 12 days and do wound checks. Eliquis 5 mg p.o. b.i.d. for DVT prophylaxis as well as chronic AFib management. Pain control with Ultram 50 mg tabs 1 to 2 tabs every 6 hours as needed for pain, maximum 6 per day, oxycodone 5 mg tab every 4 to 6 hours as needed for breakthrough pain, maximum 4 per day. Wean off of Ultram and oxycodone to Tylenol only as your pain allows and may use Tylenol [id number], max daily dose of 4000 mg from all sources. Follow up with Dr. Matthews in 4 weeks and call for an appointment. ELZA CARLIN [id number]/[facility] #: [id number] NITZA
== END 2018-03-29 15:00 | disposition home health service (06) | DRG 302 ==
LOC: AA 05:46 → SSU 13:15
PROVIDERS: ADMIT Orthopaedic Surgery; ATTEND Orthopaedic Surgery
PROC: 0SRD0J9 Replacement of Left Knee Joint with Synthetic Substitute, Cemented, Open Approach (ICD-10-PCS; principal; 2018-03-26 07:30)
DX: M17.0 Bilateral primary osteoarthritis of knee (principal); I50.32 Chronic diastolic (congestive) heart failure; Z68.43 Body mass index [BMI] 50.0-59.9, adult; E66.01 Morbid (severe) obesity due to excess calories; I11.0 Hypertensive heart disease with heart failure; I35.8 Other nonrheumatic aortic valve disorders; E74.39 Other disorders of intestinal carbohydrate absorption; I48.2 Chronic atrial fibrillation; G47.33 Obstructive sleep apnea (adult) (pediatric); Z88.1 Allergy status to other antibiotic agents; Z91.013 Allergy to seafood; Z80.1 Family history of malignant neoplasm of trachea, bronchus and lung; Z80.8 Family history of malignant neoplasm of other organs or systems; Z82.3 Family history of stroke; Z83.3 Family history of diabetes mellitus; Z82.49 Family history of ischemic heart disease and other diseases of the circulatory system; Z72.89 Other problems related to lifestyle; Z86.711 Personal history of pulmonary embolism; Z98.84 Bariatric surgery status; Z90.49 Acquired absence of other specified parts of digestive tract; Z98.49 Cataract extraction status, unspecified eye; Z90.3 Acquired absence of stomach [part of]; Z98.52 Vasectomy status; Z87.01 Personal history of pneumonia (recurrent); Z86.718 Personal history of other venous thrombosis and embolism; Z79.01 Long term (current) use of anticoagulants
CPT/HCPCS: 36415; 80048; 84484; 85014; 85018; 85049; 85610; 85730; 88305; 88311; 93005; A9270-GY; C1776; J0360; J1100; J1170; J1650; J2250; J2704; J2795; J3010; J3370

== ENCOUNTER 2018-06-11 08:35 | Inpatient (IN) | payer BC ==
--- NOTE | 2018-05-29 19:01 | HP ---
PREOPERATIVE HISTORY AND PHYSICAL: DATE OF ADMISSION: 06/11/18 PROVIDER: Dr. Milton Matthews.* (DICTATED BY ELZA FISCHER) CHIEF COMPLAINT: Right knee pain. HISTORY OF PRESENT ILLNESS: Mr. Argueta is a 63-year-old gentleman, who has been followed by Dr. Matthews for bilateral knee pain. He underwent left total knee arthroplasty and has done very well. He is interested in surgical intervention for correction of the right knee. He states that the right knee pain has significantly increased since having the left knee done as he is having to favor that knee quite frequently. He currently takes Eliquis for history of PEs and will transition to Lovenox preoperatively. PAST MEDICAL HISTORY: Hypertension, atrial fibrillation, morbid obesity, congestive heart failure, sleep apnea, history of pulmonary embolism, proteinuria, glucose intolerance, recurrent cellulitis of his lower extremities , aortic sclerosis, and extremity edema. PAST SURGICAL HISTORY: Adipose resection with panniculectomy and flank resections, gastric banding, cholecystectomy, Lap-Band removal, gastric sleeve, and cataract resection. CURRENT MEDICATIONS: 1. Eliquis 5 mg twice daily. 2. Amlodipine besylate 5 mg 2 tabs p.o. q. day. 3. Inspra 25 mg 2 tabs p.o. q. day. 4. Viagra 50 mg 2 tabs p.o. p.r.n. 5. Fluocinonide cream 0.05% twice daily as needed for rash. 6. Doxycycline 50 mg p.o. daily. 7. Omeprazole 20 mg p.o. daily. 8. Ibuprofen as needed for pain. 9. Vitamin D 5000 units daily. 10. Flintstones multivitamin daily. ALLERGIES: KEFLEX, FISH OIL, NORVASC, and CLINDAMYCIN. FAMILY HISTORY: Positive for lung cancer in his father, brain cancer in his mother, stroke in his paternal grandfather, cancer in his paternal grandmother, hypertension and diabetes in his maternal grandmother. SOCIAL HISTORY: The patient lives with his . 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 He denies tobacco use. He denies drug use. Rare alcoholic beverage use. He exercises frequently and enjoys swimming. REVIEW OF SYSTEMS: A 14-point review of systems was discussed with the patient. All systems were negative except discussed in the HPI. PHYSICAL EXAMINATION GENERAL: He is a well-developed, well-nourished male, in no acute distress at rest. He is alert and oriented x3 with appropriate mood and affect. VITAL SIGNS: The patient is 6 feet 3 inches, 444 pounds. Blood pressure 136/80 , pulse of 68, temperature 99. HEENT: Normocephalic, atraumatic. His hearing and vision are grossly intact. NECK: His trachea is midline. RESPIRATORY: Lungs are clear to auscultation bilaterally, slightly diminished bilaterally as well. No wheezes, rales, or rhonchi. CARDIOVASCULAR: Regular rate and rhythm. No murmurs, rubs, or gallops. ABDOMEN: Obese, nontender, nondistended. EXTREMITIES: Exam of the right lower extremity: He has yndc-iu-qenurxuv edema with hyperpigmentation from mid calf down with multiple nodules seen. There are no open wounds. He has 0 to 100 degrees of flexion. There is no instability with varus or valgus stress testing. He is tender to palpation along the medial and lateral joint lines. Positive patellar grind. Sensation to light touch is intact distally. He has normal vascular exam. IMAGING: X-rays of the right knee were reviewed by Dr. Matthews and show severe osteoarthritic changes of the right knee with jnoh-oo-dmbk contact, osteophyte formation, and subchondral sclerosis. IMPRESSION: Right knee end-stage osteoarthritis. PLAN: The patient is to undergo a right total knee arthroplasty by Dr. Matthews on 06/11/18. The risks, benefits, and postoperative course were discussed with the patient at length and he would like to proceed. He is to follow up with Dr. Kiran for preoperative clearance and further instruction on Lovenox bridging prior to surgery. All of his questions were answered to his full satisfaction. He is understanding to call if he develops problems or concerns. ELZA FISCHER [id number]/[facility] #: [id number] NITZA
[~2018-06-11 08:35] MED LIST: Buffered Lidocaine 0.9% SYRIN* 5 ML/SYR SYRINGE INTRADERM ONE; Dexamethasone IV* 4 MG/ML 1 ML (4 MG) IV SLOW PU ONE; Famotidine IV* 10 MG/ML 2 ML (20 mg) IV ONE; Midazolam* 1 MG/ML 2 ML VIAL (2 MG) ONE; fentaNYL* 50 MCG/ML 2 ML VIAL (100 MCG VIAL) ONE
[2018-06-11] MEDS ORDERED: Famotidine IV* 10 MG/ML 2 ML (20 mg) ONE (08:53)
[2018-06-11] MEDS ORDERED: ceFAZolin 2 GM PREMIX (*) 2 GM/50 ML BAG IVPB ONE (08:53)
[2018-06-11] MEDS ORDERED: Dexamethasone IV* 4 MG/ML 1 ML (4 MG) ONE ×2 (08:53→11:03)
[2018-06-11] MEDS ORDERED: ceFAZolin 1 GM in Dextrose (*) 1 GM/50 ML BAG IVPB ONE (08:53)
[2018-06-11] MEDS ORDERED: Rocuronium* 10 MG/ML VIAL ONE (09:13)
[2018-06-11] MEDS ORDERED: Bupivacaine 0.25% W/EPI* 10 ML SDV ONE ×2 (10:02→12:08)
[2018-06-11] MEDS ORDERED: Lidocaine 2% PF * 5 ML VIAL ONE (11:03)
[2018-06-11] MEDS ORDERED: Propofol* 10 MG/ML 20 ML BTL IV PUSH ONE ×2 (11:03→12:00)
[2018-06-11] MEDS ORDERED: Ondansetron INJ* 2 MG/ML VIAL ONE (11:03)
[2018-06-11] MEDS ORDERED: Succinylcholine* 20 MG/ML 10 ML VIAL ONE (11:03)
[2018-06-11] MEDS ORDERED: Morphine VIAL* 10 MG/ML 1 ML VIAL ONE (11:04)
[2018-06-11] MEDS ORDERED: Ondansetron INJ* 2 MG/ML VIAL IV PRN ×2 (11:24→13:38)
[2018-06-11] MEDS ORDERED: Naloxone* 0.4 MG/ML 1 ML VIAL IV PRN (11:24)
[2018-06-11] MEDS ORDERED: DiMENhydriNATE IV* 50 MG/ML VIAL IV PUSH PRN (11:24)
[2018-06-11] MEDS ORDERED: Morphine INJ* 2 MG/ML 1 ML SYRINGE (TWO MG - NEW SYRINGE VERSION) IV PRN (11:24)
[2018-06-11] MEDS ORDERED: oxyCODONE/Acetamin 5/325 MG* TAB PO PRN (11:24)
[2018-06-11] MEDS ORDERED: Acetaminophen TAB* 325 MG PO PRN (11:24)
[2018-06-11] MEDS ORDERED: Sevoflurane* 1 BTL ONE (12:25)
[2018-06-11] MEDS ORDERED: Morphine VIAL* 4 MG/ML VIAL (1 ml vial) IV PRN (13:38)
[2018-06-11] MEDS ORDERED: Ondansetron ODT TAB* 4 MG PO PRN (13:38)
[2018-06-11] MEDS ORDERED: Magnesium Hydroxide LIQ* 30 ML UDC PO PRN (13:38)
[2018-06-11] MEDS ORDERED: fentaNYL* 50 MCG/ML 2 ML VIAL (100 MCG VIAL) ONE (13:46)
[2018-06-11] MEDS ORDERED: oxyCODONE/Acetamin 5/325 MG* TAB ONE (13:46)
[2018-06-11] MEDS: fentaNYL* 50 MCG/ML 2 ML VIAL (100 MCG VIAL) IV PRN ×2 (13:49→13:57)
[2018-06-11] MEDS ORDERED: traMADol TAB* 50 MG PO SCH (14:00)
[2018-06-11] MEDS ORDERED: Vancomycin per Pharmacy* NOTE FOLLOW UP SCH (14:00)
[2018-06-11] MEDS ORDERED: Vancomycin(*) 0 MG in NS 0.9% 250 ML* 250 ML IVPB SCH (14:00)
[2018-06-11] MEDS ORDERED: Acetaminophen TAB* 325 MG PO SCH (14:00)
--- NOTE | 2018-06-11 14:25 | RAD ---
Indication: RIGHT total knee replacement. Comparison: August 23, 2017 Technique: RIGHT knee: AP and crosstable lateral views. Report: Total knee prosthesis appears normally located. Negative for periprosthetic fracture. Joint effusion and gas as well as overlying soft tissue edema and subcutaneous emphysema. Anterior cutaneous valerie. IMPRESSION: #. Unremarkable immediate postop appearance following RIGHT total knee replacement.
[2018-06-11] MEDS: D5W 1/2 NS 1000 ML BAG* 1,000 ML IV SCH (16:46)
[2018-06-11] MEDS: Acetaminophen TAB* 325 MG PO SCH (18:17)
[2018-06-11] MEDS: traMADol TAB* 50 MG PO SCH (18:18)
--- NOTE | 2018-06-11 19:55 | CONS ---
CC: Dr. Matthews; Dr. Kiran * CONSULTATION REPORT: DATE OF CONSULT: 06/11/18 REQUESTING PHYSICIAN IN CONSULT: Dr. Matthews. PRIMARY CARE PROVIDER: Dr. Kiran. REASON FOR MEDICAL CONSULT: Evaluation and medical management of comorbid medical conditions. HISTORY OF PRESENT ILLNESS: I will refer you to Dr. Matthews's H and P for further details. In short, Mr. Argueta is a 63-year-old male patient with a very complex medical history. He has a history of hypertension, AFib. He has morbid obesity. He weighs 202 kilograms. He has a history of CHF, some cor pulmonale, and a history of AMERICO along with a history of PE. He is presenting to the orthopedic service today with right knee pain. He just had his left knee done in March. He says he has been doing well with the left knee replacement , but now the right knee, he has been having significant pain. He has been failing conservative management. He presented today for the right total knee replacement. He is evaluated in the PACU. He says he is feeling well. He says he has no numbness or tingling to the right lower extremity. He says the pain is well controlled. He says he is a little sore now at the incision site, but there is no numbness or tingling. Denies any chest pain, denies any shortness of breath, says he does not feel lightheaded or dizzy, denies feeling nauseated; in fact, says he feels hungry, but because of his medical complexity , we were asked to evaluate in consult. PAST MEDICAL HISTORY: Significant for: 1. Hypertension. 2. Chronic AFib. 3. PE. 4. AMERICO. 5. CHF. 6. Morbid obesity. 7. Glucose intolerance. 8. History of cellulitis to his abdomen and lower extremities. PAST SURGICAL HISTORY: He has had: 1. Lap-Band placement and removal. 2. Laparoscopic cholecystectomy. 3. Gastric sleeve. 4. Left total knee replacement. 5. Now, a right total knee replacement. MEDICATIONS: Home medications according to the list provided include: 1. Ultram 50 mg every 6 hours as needed. 2. Oxycodone 10 mg every 4 hours as needed. 3. Amlodipine 10 mg p.o. daily. 4. Viagra 100 mg at bedtime as needed. 5. Multivitamin 1 tablet daily. 6. Prilosec 20 mg p.o. daily. 7. Lidex 1 application topically t.i.d. as needed. 8. Inspra 50 mg p.o. q.a.m. 9. Doxycycline 50 mg at bedtime. 10. Vitamin D 5000 units daily. 11. Apixaban 5 mg p.o. b.i.d. 12. Acetaminophen 500 mg p.o. b.i.d. ALLERGIES TO MEDICATIONS: Include KEFLEX, CLINDAMYCIN, FISH OIL, TETRACYCLINE, and NORVASC, although he does take Norvasc still. FAMILY HISTORY: His mother had a history of breast cancer. Father had a history of lung cancer. SOCIAL HISTORY: He does not smoke. He does drink occasionally. 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 Surrogate decision maker is his . REVIEW OF SYSTEMS: There is no documented fever. He is denying any significant weight change. There was no double vision. He denies having any ear discharge. There is no rhinorrhea. No sore throat. No thyroid enlargement. He denied having any chest pain. No orthopnea. There is no nocturnal dyspnea. He denies having any abdominal pain. There is no nausea. He denies having any vomiting. No dysuria, no frequency. There was no seizure , no loss of consciousness. No pruritus and no skin ulcerations. Review of 14 systems was completed, all others negative. PHYSICAL EXAM: Vital Signs: Blood pressure 147/86 with pulse of 73, respirations are 14, his O2 saturation was 98% on 4 L, his temperature was 98.1. Generally, at this time, Mr. Argueta is a 63-year-old male patient. He is sitting in the PACU. He is morbidly obese. He does not appear to be in any acute distress. HEENT: Head: Atraumatic and normocephalic. Eyes: EOMs are intact. Sclerae were anicteric and not pale. Throat: Oral mucosa appears to be moist. No oropharyngeal erythema. His neck was supple. Heart: Sounds S1, S2. He had irregularly irregular rate and rhythm. He had no murmurs, rubs, or gallops. His lungs were clear to auscultation bilaterally. No wheezes or rhonchi. Abdomen was soft. It was flat. It was nontender. Bowel sounds are present. Extremities: Pulses were 2+ throughout. He is moving the upper extremities with 5/5 strength. The right lower extremity, he has limited range of motion of this operative leg, but distal CSM checks were intact. Neurologically, the patient is awake, he is alert, he is oriented x3. Tongue is midline. Automated Equipment Engineer Technician were equal. He had no gross focal deficits. His skin is intact with exception he has an incision to the right knee, which is clean, dry , and intact. DIAGNOSTIC STUDIES/LAB DATA: Labs, which are preoperative, revealing a WBC of 4.6, RBC of 4.65, hemoglobin of 14.7, hematocrit of 44, and a platelet count of 203. His INR was 1.07. He had a sodium of 141, potassium of 4.3, chloride of 106, bicarb of 29, BUN of 22, creatinine 1.01, his glucose was 112. Urine preop showed 1+ protein, trace leukocyte esterase. He had a preoperative EKG that showed atrial fibrillation, rate of 63, no ST elevations or T-wave inversions were noted. Old medical records were reviewed. ASSESSMENT AND PLAN: Mr. Argueta is a 63-year-old male patient with a very complex medical history coming in to the orthopedic services today for an elected total knee. My recommendations at this point are: 1. Status post right total knee. I will defer the management to Dr. Matthews and his team. 2. Hypertension. I will continue his Norvasc. 3. Atrial fibrillation. He has been following closely with Dr. Hammond for this. Given the patient's obesity, Eliquis again has been noted not to be the optimal choice; however, the patient is quite adamant that he wants to stay with Eliquis given the fact that he does not have to have lab draws. He is scheduled to see Hematology to discuss options and he is also following with his primary for this. Primary is considering having to see the patient in his office to draw his INRs. I am going to continue Eliquis for the time being and have him follow this up with his primary. I would recommend starting the Eliquis and I will discuss this with Orthopedics as soon as possible. 4. Obesity. Continue with lifestyle modifications. 5. History of congestive heart failure. He is on Inspra only. I would restart that in the next 24 to 36 hours depending on how he is doing, but I am holding it for now. We can always restart it at a later date and diurese as needed if needed. 6. Obstructive sleep apnea. Continue with his BiPAP as prescribed. 7. History of pulmonary embolism. Again, I will get him on his Eliquis as well as possible. He is going to start this tomorrow night and Orthopedics is okay with this. 8. DVT prophylaxis. Again, he is on Lovenox now. We will transition to Eliquis. 9. Code status. He is a full code. 10. Fluids, electrolytes, and nutrition. I would recommend a heart-healthy diet. TIME SPENT: On the consult was 60 minutes, greater than half that time was spent idhg-[id number] with the patient obtaining my history and physical, the other half time was spent going over the plan of care with the patient and implementing the plan of care. I did discuss the plan of care with my attending, Dr. Benedict; she is in agreement. JOSE ROBERTO MORLEY, BUCKET CHUCKER [id number]/[facility] #: [id number] NITZA
[2018-06-11] MEDS: ceFAZolin 2 GM PREMIX (*) 2 GM/50 ML BAG IVPB SCH (21:11)
[2018-06-11] MEDS: Magnesium Hydroxide LIQ* 30 ML UDC PO SCH (21:15)
[2018-06-11] MEDS: Docusate CAP* 100 MG PO SCH (21:16)
--- NOTE | 2018-06-11 22:58 | OP ---
DATE OF OPERATION: 06/11/18 - ROOM #348 DATE OF : 53 SURGEON: Milton Matthews MD FIRE PILOT: Kira Neumann RPA. Kira Neumann was present for all aspects of the case from positioning to the approach, to cementing of the instruments to the closure, and the case could not have been done without an assistant field hockey coach. ANESTHESIA: General, endotracheal. PRE-OP DIAGNOSIS: Osteoarthritis, right knee. POST-OP DIAGNOSIS: Osteoarthritis, right knee. OPERATIVE PROCEDURE: Right total knee arthroplasty. INDICATIONS: Mr. Argueta is a 63-year-old male, who has been dealing with bilateral knee pain for several years now. He had tried different weight loss techniques, but did realize that his weight of over 450 pounds did add to his knee pain. He had undergone a left total knee arthroplasty approximately 6 weeks ago, and is very pleased with the left knee. He is very interested in getting his right knee done as well, so that he can be more active, try and exercise, and try to lose weight. He was warned that he is at higher risk of complications because of his weight. Risks of surgery such as infection, scar formation, stiffness, DVT, pulmonary embolism, hardware failure, and continued pain were some of the risks discussed. He had been declared medically optimized by several services and wished to proceed. ESTIMATED BLOOD LOSS: 450 cc. COMPLICATIONS: None. HARDWARE: Mansoor Persona #10 femur, G tibia, 10-mm polyethylene, 41-mm all- polyethylene patellar button. DESCRIPTION OF PROCEDURE: The patient was brought to the OR and general endotracheal anesthesia was established. Tourniquet was placed about the proximal right thigh and was used during the case, during cementing. Total tourniquet time would be 9 minutes. Right knee was prepped and then draped. 60 cc of 0.25% Marcaine with epinephrine was used to inject various areas of the knee through the case. Specifically, 20 cc was used along the incision, 10 cc into each gutter and another 20 cc posteriorly into the knee. Finally, an additional 20 cc of 0.5% Marcaine with epinephrine was injected into the knee joint once the knee was closed. Incision was made centered about the patella and was carried proximally and distally for a good 10 cm. Incision was carried down through the skin and subcutaneous fat. Various bleeders encountered were ligated using electrocautery. Extensor mechanism was exposed and a sharp parapatellar arthrotomy was made, a gush of clear yellowish joint fluid was encountered. Several bleeders about the arthrotomy were also addressed using electrocautery. Fat pad was sharply excised and the soft tissues were sharply elevated from the medial side of the tibia. Patella measured almost 30 mm in thickness and an 11-mm cut was taken. Patella was then easily subluxated laterally and the knee was flexed up. Extensive arthritic change was obvious. Step drill was used to open the femoral canal and intramedullary guide was placed. Distal femoral guide was adjusted until it was parallel with the epicondyle and then pinned into place. Distal femoral cutting guide was then pinned into place and the intramedullary guide was removed. Distal femoral cut was taken and since I had to recut the medial femur due to its hypoplastic lateral femoral condyle on the left, I this side for 2 degrees and 2 mm. Cut was taken, but it could be seen where I was not even down in the intercondylar notch. This was then recut for an additional 2 mm. It appeared I had a decent cut and femur was then sized, again sat nicely for a 10. Holes were drilled and a superior drill hole was run, but the block was sitting a little high. Block was brought downward until the superior drill hole just came right across the top side of the femoral cortex. Block was then pinned into place and then anterior cut was taken. Smooth anterior cortex was obtained. Posterior cuts and chamfer cuts were taken. Attention was turned to the tibia. Step drill was used to open the tibial canal at the junction of the lateral meniscus and spine of the ACL. Intramedullary guide was placed, and the outrigger was assembled and adjusted until we would take 2 mm from the worn medial side. Cutting guide was then pinned into place and a proximal tibial cut was taken. Nice cut was obtained. Spacer block was placed on the top of the tibia and with the spacer block sitting flat and the drop tiny , its alignment on the tibial cut appeared perfect. With coming into extension , it could be seen how there was very specific wobble and I had not taken enough from the medial femoral condyle. It was a good 3 mm separate that I needed to adjust for. Freehand cut was taken, taking more from the medial side and tried to make a flat even cut across the top side on the distal aspect of the femur. This was done twice and with the second time, it appeared even better and with the block and again, it could be seen how he locked out nicely, flexed and was a little loose and its alignment again appeared perfect. The knee was copiously pulsed lavaged throughout because of its oozing. Tibia was sized and a 10 sat nicely. Proximal tibia was drilled and then punched. 10 femur was then impacted into place and a notch cut was taken. Trial polyethylene was snapped into place and with the 10, he came out nicely into full extension, flexed easily, and it was nice and stable throughout. Patella occasionally wanted to snap over the side. A little bit of cartilage needed to be rongeured from the patella and the patella sized for a 41. Holes were drilled and trial was snapped into place. Patellar tracking was now perfect. Trial instrumentation was removed and tourniquet was raised. The knee was copiously pulse lavaged. Cement was being prepared. Tibia followed by femur and patella were all cemented into place. Excess cement was removed and the cement was allowed to harden. Once the cement was mostly hardened, tourniquet was let down as it was starting to act as a venous tourniquet once again. The knee was again copiously pulse lavaged to clear the blood and get the same wonderful motion and stability with the 10 trial was taken out and the knee was again pulse lavaged and searched for cement, a few small pieces were found. 10 polyethylene was then snapped into place. The knee was again copiously pulsed lavaged and parapatellar arthrotomy was repaired using interrupted #1 Vicryl sutures. Subcutaneous tissues were approximated using 2-0 Vicryl. Skin was closed using valerie. Sterile dressing was applied in the OR. The patient was then extubated in the OR and was stable on transfer to the recovery room. [id number]/[facility] #: [id number] NITZA
[2018-06-12] MEDS: traMADol TAB* 50 MG PO SCH ×4 (00:33→17:51)
[2018-06-12] MEDS: Acetaminophen TAB* 325 MG PO SCH ×3 (02:17→17:52)
[2018-06-12] MEDS: D5W 1/2 NS 1000 ML BAG* 1,000 ML IV SCH (02:37)
[2018-06-12] MEDS: oxyCODONE TAB* 5 MG TAB PO PRN ×5 (03:15→19:40)
[2018-06-12] MEDS: ceFAZolin 2 GM PREMIX (*) 2 GM/50 ML BAG IVPB SCH ×2 (03:17→11:58)
[2018-06-12 06:29] LABS: Hematocrit 34 % (42-52); Hemoglobin 11.8 g/dl (14.0-18.0); Mean Platelet Volume 7.8 um3 (7.4-10.4); Platelet Count 155 10^3/ul (150-450)
[2018-06-12 06:47] LABS: EGFR Non-African American 76.1 (>60)
[2018-06-12] MEDS: Omeprazole CAP* 20 MG PO SCH (09:01)
[2018-06-12] MEDS: Magnesium Hydroxide LIQ* 30 ML UDC PO SCH ×2 (09:01→21:25)
[2018-06-12] MEDS: amLODIPine TAB* 5 MG PO SCH (09:01)
[2018-06-12] MEDS: Docusate CAP* 100 MG PO SCH ×2 (09:01→21:25)
--- NOTE | 2018-06-12 11:07 | PN ---
Progress Note - Progress Note Date of Service: 06/12/18 SOAP: Subjective: []Patient seen at bedside. He feels well this morning. He was out of bed walking last night. Denies chest pain, shortness of breath, dizziness, nausea or rash. He has been tolerating ancef well. Objective: []General: Well appearing, NAD RLE: right knee dressing CDI without erythema surrounding. Thigh is soft. Sensation intact throughout RLE. DF/PF intact. DP 2+. Calves supple and nontender without erythema, chronic hyperpigmentation remains present Assessment: [] POD 1 sp right total knee arthroplasty Plan: []WBAT PT/OT One dose of lovenox today, tonight will restart home dose of eliquis Appreciate hospitalist co-management Vital Signs Temp 97.8 F 06/12/18 07:34 Pulse 60 06/12/18 07:34 Resp 18 06/12/18 09:24 BP 94/59 06/12/18 07:34 Pulse Ox 97 06/12/18 07:34 Intake & Output 06/11/18 06/12/18 06/12/18 18:59 06:59 18:59 Intake Total 1200 1780 700 Output Total 430 875 200 Balance 770 905 500 Weight 453 lb Intake: IV Fluids 1200 980 CEFAZOLIN 3 GM 100 D5W 1/2 NS 980 LR 1100 Oral 800 700 Output: Urine 200 Fernandez 400 875 Residual 30 Fernandez 16 Fr 30 Other: # Bowel Movements 0 Estimated Blood Loss 450 Comment Laboratory Last Values Hgb 11.8 g/dl (14.0-18.0) L 06/12/18 05:34 Hct 34 % (42-52) L 06/12/18 05:34 Plt Count 155 10^3/ul (150-450) 06/12/18 05:34 MPV 7.8 um3 (7.4-10.4) 06/12/18 05:34 Sodium 133 mmol/L (135-145) L 06/12/18 05:34 Potassium 5.4 mmol/L (3.5-5.0) H 06/12/18 05:34 Chloride 102 mmol/L (101-111) 06/12/18 05:34 Carbon Dioxide 26 mmol/L (22-32) 06/12/18 05:34 Anion Gap 5 mmol/L (2-11) 06/12/18 05:34 BUN 22 mg/dL (6-24) 06/12/18 05:34 Creatinine 0.99 mg/dL (0.67-1.17) 06/12/18 05:34 Est GFR ( Amer) 92.1 (>60) 06/12/18 05:34 Est GFR (Non-Af Amer) 76.1 (>60) 06/12/18 05:34 BUN/Creatinine Ratio 22.2 (8-20) H 06/12/18 05:34 Glucose 162 mg/dL (70-100) H 06/12/18 05:34 Calcium 8.5 mg/dL (8.6-10.3) L 06/12/18 05:34
[2018-06-12] MEDS ORDERED: Enoxaparin(*) 40 MG/0.4 ML SYR SUBCUT SCH (14:00)
--- NOTE | 2018-06-12 15:32 | PN ---
Subjective Date of Service: 06/12/18 Interval History: Pt seen and examined. Meds and labs reviewed. ROS: Denied GALEANO/dizziness, F/C, N/V, CP, SOB, increased cough, sputum production , abd pain, diarrhea, constipation, dysuria, myalgias, arthralgias, throat pain , and new skin lesions. The rest of the 14 point ROS are unremarkable. PHYSICAL EXAM: GEN APPEARANCE: Awake, not in acute distress HEENT: NC/AT, PERRLA, moist oral mucosa, (-) throat erythema NECK: Soft, supple, (-) cervical LAD, (-)JVD HEART: S1S2 WNL, RRR, No MRG CHEST: CTA, BL, GAE, No W/R/R ABD: Soft, ND/NT, NABS 4x Q EXT: No C/C/BLLE 2+ edema SKIN: Warm to touch PSYCH: No active psychosis, hallucinations, depression, SI/HI Objective Active Medications: Acetaminophen (Tylenol Tab*) 975 mg PO 0200,1000,1800 [facility] Last Admin: 06/12/18 09:01 Dose: 975 mg Amlodipine Besylate (Norvasc Tab*) 10 mg PO QAM [facility] Last Admin: 06/12/18 09:01 Dose: 10 mg Apixaban (Eliquis*) 5 mg PO BID [facility] Docusate Sodium (Colace Cap*) 100 mg PO BID [facility] Last Admin: 06/12/18 09:01 Dose: 100 mg Dextrose/Sodium Chloride (D5w 1/2 Ns 1000 Ml Bag*) 1,000 mls @ 100 mls/hr IV PER RATE [facility] Last Admin: 06/12/18 02:37 Dose: 100 mls/hr Magnesium Hydroxide (Milk Of Magnesia Liq*) 30 ml PO BID [facility] Last Admin: 06/12/18 09:01 Dose: 30 ml Magnesium Hydroxide (Milk Of Magnesia Liq*) 30 ml PO Q6H PRN PRN Reason: constipation Morphine Sulfate (Morphine Inj ((Syringe))*) 2 mg IV Q10M PRN PRN Reason: PAIN Morphine Sulfate (Morphine Vial*) 2 mg IV Q2H PRN PRN Reason: PAIN - BREAKTHROUGH Last Admin: 06/12/18 03:11 Dose: 2 mg Naloxone HCl (Narcan*) 0.08 mg IV Q2M PRN PRN Reason: severe induced resp depression Omeprazole (Prilosec Cap*) 20 mg PO QAM [facility] Last Admin: 06/12/18 09:01 Dose: 20 mg Ondansetron HCl (Zofran Inj*) 4 mg IV ONCE PRN PRN Reason: NAUSEA/VOMITING Ondansetron HCl (Zofran Inj*) 4 mg IV Q6H PRN PRN Reason: nausea Ondansetron HCl (Zofran Odt Tab*) 4 mg PO Q6H PRN PRN Reason: NAUSEA Oxycodone HCl (Roxycodone Tab*) 5 mg PO Q3H PRN PRN Reason: PAIN - SEVERE Last Admin: 06/12/18 12:28 Dose: 5 mg Oxycodone/Acetaminophen (Percocet 5/325 Tab*) 1 tab PO ONCE PRN PRN Reason: PAIN - MODERATE Last Admin: 06/11/18 13:49 Dose: 1 tab Tramadol HCl (Ultram*) 50 mg PO Q6HR [facility] Last Admin: 06/12/18 11:58 Dose: 50 mg Vital Signs - 8 hr 06/12/18 06/12/18 06/12/18 07:34 08:00 08:05 Temperature 97.8 F Pulse Rate 60 Respiratory 16 18 16 Rate Blood Pressure 94/59 (mmHg) O2 Sat by Pulse 97 97 Oximetry 06/12/18 06/12/18 06/12/18 09:24 10:00 11:28 Temperature 97.7 F Pulse Rate 63 Respiratory 18 18 16 Rate Blood Pressure 116/61 (mmHg) O2 Sat by Pulse 97 Oximetry 06/12/18 06/12/18 06/12/18 11:58 12:00 12:28 Temperature Pulse Rate Respiratory 18 18 18 Rate Blood Pressure (mmHg) O2 Sat by Pulse Oximetry 06/12/18 06/12/18 13:57 15:04 Temperature Pulse Rate Respiratory 18 16 Rate Blood Pressure (mmHg) O2 Sat by Pulse Oximetry Oxygen Devices in Use Now: BiPAP Result Diagrams: 06/12/18 05:34 06/12/18 05:34 Assess/Plan/Problems-Billing Assessment: - Patient Problems (1) Status post total right knee replacement Current Visit: Yes Status: Acute Code(s): Z96.651 - PRESENCE OF RIGHT ARTIFICIAL KNEE JOINT SNOMED Code(s): 9999338219000 Comment: -WBAT -Perioperative pain well-controlled -For PT/OT eval (2) HTN (hypertension) Current Visit: Yes Status: Acute Code(s): I10 - ESSENTIAL (PRIMARY) HYPERTENSION SNOMED Code(s): 32055772 Comment: -Continue Amlodipine -Continue watchful waiting (3) Atrial fibrillation Current Visit: No Status: Acute Code(s): I48.91 - UNSPECIFIED ATRIAL FIBRILLATION SNOMED Code(s): 14809097 Comment: -Pt on Eliquis (4) GERD (gastroesophageal reflux disease) Current Visit: Yes Status: Acute Code(s): K21.9 - GASTRO-ESOPHAGEAL REFLUX DISEASE WITHOUT ESOPHAGITIS SNOMED Code(s): 066852938 Comment: -Continue Omeprazole (5) DVT prophylaxis Current Visit: No Status: Acute Code(s): PFR3140 - SNOMED Code(s): 900070624 Comment: -On Eliquis Status and Disposition: -Defer with Orthopedics; possible D/C home when ready -Continue to follow PT/OT reassessment
[2018-06-12] MEDS ORDERED: Triamcinolone 0.5% OINT * 15 GM TUBE TOPICAL PRN (19:50)
[2018-06-12] MEDS: Apixaban* 5 MG TAB PO SCH (21:25)
[2018-06-13] MEDS: traMADol TAB* 50 MG PO SCH ×4 (00:30→17:49)
[2018-06-13] MEDS: Acetaminophen TAB* 325 MG PO SCH ×3 (02:10→17:49)
--- NOTE | 2018-06-13 04:15 | PN ---
Progress Note - Progress Note Date of Service: 06/13/18 Note: Nursing called reporting HR <40 sustained for >15min primarily 2nd frequent pauses, the longest of which was 3.67s. Patient follows Nilton Hammond MD cardiology for this, consider consultation in AM as he is on no negative chronotropes.
[2018-06-13 05:54] LABS: Hematocrit 32 % (42-52); Hemoglobin 10.6 g/dl (14.0-18.0); Mean Platelet Volume 7.6 um3 (7.4-10.4); Platelet Count 147 10^3/ul (150-450)
[2018-06-13 06:03] LABS: EGFR Non-African American 68.1 (>60)
[2018-06-13] MEDS: Omeprazole CAP* 20 MG PO SCH (07:58)
[2018-06-13] MEDS: oxyCODONE TAB* 5 MG TAB PO PRN ×3 (07:58→21:14)
[2018-06-13] MEDS: Docusate CAP* 100 MG PO SCH ×2 (07:58→21:14)
[2018-06-13] MEDS: amLODIPine TAB* 5 MG PO SCH (07:58)
[2018-06-13] MEDS: Apixaban* 5 MG TAB PO SCH ×2 (07:58→21:14)
[2018-06-13] MEDS: Magnesium Hydroxide LIQ* 30 ML UDC PO SCH ×2 (08:00→21:14)
--- NOTE | 2018-06-13 10:59 | PN ---
Progress Note - Progress Note Date of Service: 06/13/18 SOAP: Subjective: []Patient seen at bedside. He feels well and denies chest pain, shortness of breath, dizziness, nausea. Overnight he had a low heart rate less than 40 sustained for over 15 minutes. He was asymptomatic during this time. As an outpatient he is followed by Dr Hammond. After his left knee replacement he had episodes of low heart rate as well. During physical therapy he had bleeding of the knee. Objective: [] General: Well appearing, NAD RLE: right knee dressing CDI, dressing was changed, incision CDI without erythema surrounding. Thigh is soft. Sensation intact throughout RLE. DF/PF intact. DP 2+. After PT dressing had to be reinforced due to bleeding, incision remains CDI. Calves supple and nontender without erythema, chronic hyperpigmentation remains present Assessment: [] POD 2 s/p right total knee arthroplasty Plan: []WBAT PT/OT On home dose cha Brandon hospitalist co-management Sodium stable, potassium trending towards normal I expect to discharge him to home tomorrow Vital Signs Temp 97.1 F 06/13/18 07:46 Pulse 48 06/13/18 07:46 Resp 16 06/13/18 08:00 BP 141/93 06/13/18 07:46 Pulse Ox 100 06/13/18 07:46 Intake & Output 06/12/18 06/13/18 06/13/18 18:59 06:59 18:59 Intake Total 2150 700 480 Output Total 400 375 375 Balance 1750 325 105 Intake: IV Fluids 980 D5W 1/2 NS 980 IVPB 110 ABX - CEFAZOLIN 110 Oral 1060 700 480 Output: Urine 400 375 375 Laboratory Last Values Hgb 10.6 g/dl (14.0-18.0) L 06/13/18 05:40 Hct 32 % (42-52) L 06/13/18 05:40 Plt Count 147 10^3/ul (150-450) L 06/13/18 05:40 MPV 7.6 um3 (7.4-10.4) 06/13/18 05:40 Sodium 133 mmol/L (135-145) L 06/13/18 05:40 Potassium 5.2 mmol/L (3.5-5.0) H 06/13/18 05:40 Chloride 101 mmol/L (101-111) 06/13/18 05:40 Carbon Dioxide 31 mmol/L (22-32) 06/13/18 05:40 Anion Gap 1 mmol/L (2-11) L 06/13/18 05:40 BUN 28 mg/dL (6-24) H 06/13/18 05:40 Creatinine 1.09 mg/dL (0.67-1.17) 06/13/18 05:40 Est GFR ( Amer) 82.4 (>60) 06/13/18 05:40 Est GFR (Non-Af Amer) 68.1 (>60) 06/13/18 05:40 BUN/Creatinine Ratio 25.7 (8-20) H 06/13/18 05:40 Glucose 111 mg/dL (70-100) H 06/13/18 05:40 Calcium 8.4 mg/dL (8.6-10.3) L 06/13/18 05:40 Ionized Calcium 4.50 mg/dL (4.65-5.28) L 06/13/18 09:09 Phosphorus 3.3 mg/dL (2.5-5.0) 06/13/18 09:09 Magnesium 2.4 mg/dL (1.9-2.7) 06/13/18 09:09
[2018-06-13] MEDS ORDERED: Calcium Gluconate INJ* 2 GM in NS 0.9% 100 ML* 100 ML IV ONE (12:30)
--- NOTE | 2018-06-13 14:39 | PN ---
Subjective Date of Service: 06/13/18 Interval History: Pt seen and examined. Meds and labs reviewed. CC: Asymptomatic bradycardia during the night. He mentions that this is normal for him. ROS: Denied GALEANO/dizziness, F/C, N/V, CP, SOB, increased cough, sputum production , abd pain, diarrhea, constipation, dysuria, myalgias, arthralgias, throat pain , and new skin lesions. The rest of the 14 point ROS are unremarkable. PHYSICAL EXAM: GEN APPEARANCE: Awake, not in acute distress HEENT: NC/AT, PERRLA, moist oral mucosa, (-) throat erythema NECK: Soft, supple, (-) cervical LAD, (-)JVD HEART: S1S2 WNL, RRR, No MRG CHEST: CTA, BL, GAE, No W/R/R ABD: Soft, ND/NT, NABS 4x Q EXT: No C/C/E SKIN: Warm to touch PSYCH: No active psychosis, hallucinations, depression, SI/HI Objective Active Medications: Acetaminophen (Tylenol Tab*) 975 mg PO 0200,1000,1800 [facility] Last Admin: 06/13/18 10:00 Dose: 975 mg Amlodipine Besylate (Norvasc Tab*) 10 mg PO QAM [facility] Last Admin: 06/13/18 07:58 Dose: 10 mg Apixaban (Eliquis*) 5 mg PO BID [facility] Last Admin: 06/13/18 07:58 Dose: 5 mg Docusate Sodium (Colace Cap*) 100 mg PO BID [facility] Last Admin: 06/13/18 07:58 Dose: 100 mg Dextrose/Sodium Chloride (D5w 1/2 Ns 1000 Ml Bag*) 1,000 mls @ 100 mls/hr IV PER RATE [facility] Last Admin: 06/12/18 02:37 Dose: 100 mls/hr Magnesium Hydroxide (Milk Of Magnesia Liq*) 30 ml PO BID [facility] Last Admin: 06/13/18 08:00 Dose: 30 ml Magnesium Hydroxide (Milk Of Magnesia Liq*) 30 ml PO Q6H PRN PRN Reason: constipation Morphine Sulfate (Morphine Inj ((Syringe))*) 2 mg IV Q10M PRN PRN Reason: PAIN Morphine Sulfate (Morphine Vial*) 2 mg IV Q2H PRN PRN Reason: PAIN - BREAKTHROUGH Last Admin: 06/12/18 03:11 Dose: 2 mg Naloxone HCl (Narcan*) 0.08 mg IV Q2M PRN PRN Reason: severe induced resp depression Omeprazole (Prilosec Cap*) 20 mg PO QAM [facility] Last Admin: 06/13/18 07:58 Dose: 20 mg Ondansetron HCl (Zofran Inj*) 4 mg IV ONCE PRN PRN Reason: NAUSEA/VOMITING Ondansetron HCl (Zofran Inj*) 4 mg IV Q6H PRN PRN Reason: nausea Ondansetron HCl (Zofran Odt Tab*) 4 mg PO Q6H PRN PRN Reason: NAUSEA Oxycodone HCl (Roxycodone Tab*) 5 mg PO Q3H PRN PRN Reason: PAIN - SEVERE Last Admin: 06/13/18 12:43 Dose: 5 mg Oxycodone/Acetaminophen (Percocet 5/325 Tab*) 1 tab PO ONCE PRN PRN Reason: PAIN - MODERATE Last Admin: 06/11/18 13:49 Dose: 1 tab Tramadol HCl (Ultram*) 50 mg PO Q6HR [facility] Last Admin: 06/13/18 11:50 Dose: 50 mg Triamcinolone Acetonide (Triamcinolone 0.5% Oint *) 1 applic TOPICAL TID PRN PRN Reason: BILAT LEGS Vital Signs - 8 hr 06/13/18 06/13/18 06/13/18 07:46 07:58 08:00 Temperature 97.1 F Pulse Rate 48 Respiratory 20 16 Rate Blood Pressure 141/93 (mmHg) O2 Sat by Pulse 100 Oximetry 06/13/18 06/13/18 06/13/18 11:50 11:53 12:43 Temperature Pulse Rate 43 Respiratory 16 16 16 Rate Blood Pressure 112/52 (mmHg) O2 Sat by Pulse 97 Oximetry Oxygen Devices in Use Now: BiPAP Result Diagrams: 06/13/18 05:40 06/13/18 05:40 Assess/Plan/Problems-Billing Assessment: - Patient Problems (1) Bradycardia Current Visit: Yes Status: Acute Code(s): R00.1 - BRADYCARDIA, UNSPECIFIED SNOMED Code(s): 77667410 Comment: -Asymptomatic -Likely the effect of recent sedation and/or BZDs at the time that pt was asleep -Furthermore, he had a similar episode when he had TKR of the left knee -Obtained EKG which did not reveal any ST segment changes other than sinus bradycardia at 54bpm -Electrolytes reveal mildly low ionized calcium which was replaced---will recheck in AM in anticipation of possible D/C (2) Status post total right knee replacement Current Visit: Yes Status: Acute Code(s): Z96.651 - PRESENCE OF RIGHT ARTIFICIAL KNEE JOINT SNOMED Code(s): 3051972450919 Comment: -POD#2 -WBAT -Perioperative pain well-controlled -For PT/OT eval (3) HTN (hypertension) Current Visit: Yes Status: Acute Code(s): I10 - ESSENTIAL (PRIMARY) HYPERTENSION SNOMED Code(s): 73598524 Comment: -Continue Amlodipine -Continue watchful waiting (4) Atrial fibrillation Current Visit: No Status: Acute Code(s): I48.91 - UNSPECIFIED ATRIAL FIBRILLATION SNOMED Code(s): 59064233 Comment: -Pt on Eliquis (5) GERD (gastroesophageal reflux disease) Current Visit: Yes Status: Acute Code(s): K21.9 - GASTRO-ESOPHAGEAL REFLUX DISEASE WITHOUT ESOPHAGITIS SNOMED Code(s): 175068686 Comment: -Continue Omeprazole (6) DVT prophylaxis Current Visit: No Status: Acute Code(s): XZC6434 - SNOMED Code(s): 221194747 Comment: -On Eliquis Status and Disposition: -Defer with Orthopedics; possible D/C home when ready -Continue to follow PT/OT reassessment
[2018-06-14] MEDS: traMADol TAB* 50 MG PO SCH ×3 (00:43→11:36)
[2018-06-14] MEDS: Acetaminophen TAB* 325 MG PO SCH ×2 (02:18→10:06)
[2018-06-14 06:22] LABS: ABS Basophils 0 10^3/ul (0-0.2); ABS Eosinophils 0.1 10^3/ul (0-0.6); ABS Lymphocytes 1.1 10^3/ul (1.0-4.8); ABS Monocytes 0.7 10^3/ul (0-0.8); ABS Neutrophils 2.5 10^3/ul (1.5-7.7); ABS Nucleated RBC 0 10^3/ul; Eosinophil % 1.6 % (0-6); Hematocrit 30 % (42-52); Hemoglobin 10.2 g/dl (14.0-18.0); Lymphocyte % 25.4 % (25-47); Mean Corpuscular HGB Conc 34 g/dl (31-36); Mean Corpuscular Hemoglobin 32 pg (27-31); Mean Corpuscular Volume 95 fL (80-94); Mean Platelet Volume 7.8 um3 (7.4-10.4); Nucleated Red Blood Cells % 0.1; Platelet Count 142 10^3/ul (150-450); Red Blood Count 3.22 10^6/ul (4.00-5.40); Red Cell Distribution Width 14 % (10.5-15); White Blood Count 4.5 10^3/ul (3.5-10.8)
[2018-06-14] MEDS ORDERED: Calcium Gluconate INJ* 4 GM in NS 0.9% 250 ML* 250 ML IVPB ONE (07:29)
[2018-06-14] MEDS ORDERED: Calcium Gluconate INJ* 2 GM in NS 0.9% 100 ML* 100 ML IV ONE (07:30)
[2018-06-14] MEDS: Magnesium Hydroxide LIQ* 30 ML UDC PO SCH (08:25)
[2018-06-14] MEDS: amLODIPine TAB* 5 MG PO SCH (08:27)
[2018-06-14] MEDS: Docusate CAP* 100 MG PO SCH (08:27)
[2018-06-14] MEDS: Apixaban* 5 MG TAB PO SCH (08:27)
[2018-06-14] MEDS: oxyCODONE TAB* 5 MG TAB PO PRN (08:27)
[2018-06-14] MEDS: Omeprazole CAP* 20 MG PO SCH (08:27)
--- NOTE | 2018-06-14 09:58 | PN ---
Progress Note - Progress Note Date of Service: 06/14/18 SOAP: Subjective: []Patient seen at bedside. He is comfortable and denies knee pain, chest pain, shortness of breath, dizziness, nausea. Objective: [] General: Well appearing, NAD RLE: right knee dressing CDI, dressing was changed, incision CDI without erythema surrounding. Thigh is soft. Sensation intact throughout RLE. DF/PF intact. DP 2+. Calves supple and nontender without erythema, chronic hyperpigmentation remains present Assessment: [] POD 3 s/p right total knee arthroplasty Plan: []WBAT PT/OT On home dose cha Appreciate hospitalist co-management He will work with physical therapy, I expect to discharge him to home today Vital Signs Temp 97.7 F 06/14/18 07:21 Pulse 60 06/14/18 08:33 Resp 20 06/14/18 08:27 BP 127/56 06/14/18 08:33 Pulse Ox 98 06/14/18 07:21 Intake & Output 06/13/18 06/14/18 06/14/18 18:59 06:59 18:59 Intake Total 1320 750 480 Output Total 1625 850 550 Balance -305 -100 -70 Intake: Oral 1320 750 480 Output: Urine 1625 850 550 Other: Date of Last Bowel 06/14/2018 Movement # Bowel Movements 1 Estimated Stool Amount Medium Laboratory Last Values WBC 4.5 10^3/ul (3.5-10.8) 06/14/18 05:39 RBC 3.22 10^6/ul (4.00-5.40) L 06/14/18 05:39 Hgb 10.2 g/dl (14.0-18.0) L 06/14/18 05:39 Hct 30 % (42-52) L 06/14/18 05:39 MCV 95 fL (80-94) H 06/14/18 05:39 MCH 32 pg (27-31) H 06/14/18 05:39 MCHC 34 g/dl (31-36) 06/14/18 05:39 RDW 14 % (10.5-15) 06/14/18 05:39 Plt Count 142 10^3/ul (150-450) L 06/14/18 05:39 MPV 7.8 um3 (7.4-10.4) 06/14/18 05:39 Neut % (Auto) 55.9 % (38-83) 06/14/18 05:39 Lymph % (Auto) 25.4 % (25-47) 06/14/18 05:39 Cross % (Auto) 16.5 % (0-7) H 06/14/18 05:39 Eos % (Auto) 1.6 % (0-6) 06/14/18 05:39 Baso % (Auto) 0.6 % (0-2) 06/14/18 05:39 Absolute Neuts (auto) 2.5 10^3/ul (1.5-7.7) 06/14/18 05:39 Absolute Lymphs (auto) 1.1 10^3/ul (1.0-4.8) 06/14/18 05:39 Absolute Monos (auto) 0.7 10^3/ul (0-0.8) 06/14/18 05:39 Absolute Eos (auto) 0.1 10^3/ul (0-0.6) 06/14/18 05:39 Absolute Basos (auto) 0 10^3/ul (0-0.2) 06/14/18 05:39 Absolute Nucleated RBC 0 10^3/ul 06/14/18 05:39 Nucleated RBC % 0.1 06/14/18 05:39 Sodium 135 mmol/L (135-145) 06/14/18 05:39 Potassium 5.0 mmol/L (3.5-5.0) 06/14/18 05:39 Chloride 102 mmol/L (101-111) 06/14/18 05:39 Carbon Dioxide 31 mmol/L (22-32) 06/14/18 05:39 Anion Gap 2 mmol/L (2-11) 06/14/18 05:39 BUN 27 mg/dL (6-24) H 06/14/18 05:39 Creatinine 0.98 mg/dL (0.67-1.17) 06/14/18 05:39 Est GFR ( Amer) 93.2 (>60) 06/14/18 05:39 Est GFR (Non-Af Amer) 77.0 (>60) 06/14/18 05:39 BUN/Creatinine Ratio 27.6 (8-20) H 06/14/18 05:39 Glucose 91 mg/dL (70-100) 06/14/18 05:39 Calcium 8.5 mg/dL (8.6-10.3) L 06/14/18 05:39 Ionized Calcium 4.49 mg/dL (4.65-5.28) L 06/14/18 05:39 Phosphorus 3.3 mg/dL (2.5-5.0) 06/13/18 09:09 Magnesium 2.4 mg/dL (1.9-2.7) 06/13/18 09:09 Total Bilirubin 0.40 mg/dL (0.2-1.0) 06/14/18 05:39 AST 21 U/L (13-39) 06/14/18 05:39 ALT 25 U/L (7-52) 06/14/18 05:39 Alkaline Phosphatase 72 U/L (34-104) 06/14/18 05:39 Total Protein 5.3 g/dL (6.4-8.9) L 06/14/18 05:39 Albumin 3.0 g/dL (3.2-5.2) L 06/14/18 05:39 Globulin 2.3 g/dL (2-4) 06/14/18 05:39 Albumin/Globulin Ratio 1.3 (1-3) 06/14/18 05:39
[2018-06-14 11:42] VITALS: BP 119/50
--- NOTE | 2018-06-14 14:50 | PN ---
Subjective Date of Service: 06/14/18 Interval History: Pt seen and examined. Meds and labs reviewed. CC: N/A ROS: Denied GALEANO/dizziness, F/C, N/V, CP, SOB, increased cough, sputum production , abd pain, diarrhea, constipation, dysuria, myalgias, arthralgias, throat pain , and new skin lesions. The rest of the 14 point ROS are unremarkable. PHYSICAL EXAM: GEN APPEARANCE: Awake, not in acute distress HEENT: NC/AT, PERRLA, moist oral mucosa, (-) throat erythema NECK: Soft, supple, (-) cervical LAD, (-)JVD HEART: S1S2 WNL, RRR, No MRG CHEST: CTA, BL, GAE, No W/R/R ABD: Soft, ND/NT, NABS 4x Q EXT: No C/C/BLLE 2+ edema SKIN: Warm to touch PSYCH: No active psychosis, hallucinations, depression, SI/HI Objective Vital Signs - 8 hr 06/14/18 06/14/18 06/14/18 07:21 07:40 08:00 Temperature 97.7 F Pulse Rate 42 Respiratory 16 20 20 Rate Blood Pressure 105/40 (mmHg) O2 Sat by Pulse 98 95 Oximetry 06/14/18 06/14/18 06/14/18 08:27 08:29 08:33 Temperature Pulse Rate 60 60 Respiratory 20 Rate Blood Pressure 127/52 127/56 (mmHg) O2 Sat by Pulse Oximetry 06/14/18 06/14/18 06/14/18 11:17 11:36 11:37 Temperature 97.4 F Pulse Rate 75 Respiratory 16 18 18 Rate Blood Pressure 122/37 (mmHg) O2 Sat by Pulse 95 Oximetry 06/14/18 11:39 Temperature Pulse Rate 54 Respiratory Rate Blood Pressure 119/50 (mmHg) O2 Sat by Pulse Oximetry Oxygen Devices in Use Now: None Result Diagrams: 06/14/18 05:39 06/14/18 05:39 Assess/Plan/Problems-Billing Assessment: - Patient Problems (1) Bradycardia Status: Acute Code(s): R00.1 - BRADYCARDIA, UNSPECIFIED SNOMED Code(s): 31986972 Comment: -Asymptomatic -Likely the effect of recent sedation and/or BZDs at the time that pt was asleep -Furthermore, he had a similar episode when he had TKR of the left knee -Obtained EKG which did not reveal any ST segment changes other than sinus bradycardia at 54bpm -Electrolytes reveal mildly low ionized calcium which was replaced---will recheck in AM in anticipation of possible D/C -Defer with Dr. Hammond on outpt F/U -Suggested to repeat ionized calcium as outpatient in 3 days and discuss with PCP---touched base with Ms. Neumann (2) Status post total right knee replacement Status: Acute Code(s): Z96.651 - PRESENCE OF RIGHT ARTIFICIAL KNEE JOINT SNOMED Code(s): 4391731975784 Comment: -POD#3 -WBAT -Perioperative pain well-controlled -For PT/OT eval (3) HTN (hypertension) Status: Acute Code(s): I10 - ESSENTIAL (PRIMARY) HYPERTENSION SNOMED Code(s) : 69009294 Comment: -Continue Amlodipine -Well controlled despite holding Eplerenone; given mild hyperkalemia on review of hospitalization stay along with pt mentioning that this was prescribed for HTN instead of CHF, he was advised to hold this until evaluated by Dr. Hammond -Well controlled without Eplerenone (4) Atrial fibrillation Status: Acute Code(s): I48.91 - UNSPECIFIED ATRIAL FIBRILLATION SNOMED Code( s): 37188558 Comment: -Pt on Eliquis (5) GERD (gastroesophageal reflux disease) Status: Acute Code(s): K21.9 - GASTRO-ESOPHAGEAL REFLUX DISEASE WITHOUT ESOPHAGITIS SNOMED Code(s): 993253520 Comment: -Continue Omeprazole (6) DVT prophylaxis Status: Acute Code(s): XKO2158 - SNOMED Code(s): 791117462 Comment: -On Eliquis Status and Disposition: -Medically stable -For D/C today per ortho
--- NOTE | 2018-06-15 03:35 | DS ---
DISCHARGE SUMMARY: DATE OF ADMISSION: 06/11/18. DATE OF DISCHARGE: 06/14/18 PROVIDER: Milton Matthews MD.* (DICTATED BY ELZA JARAMILLO) JEWELRY DESIGNER: ELZA Reyes. PREOPERATIVE DIAGNOSIS: Osteoarthritis of the right knee. OPERATIVE PROCEDURE: Right total knee arthroplasty. HISTORY: Mr. Argueta is a 63-year-old male who has some increasingly severe right knee pain. He failed conservative management and elected to undergo a right total knee arthroplasty. HOSPITAL COURSE: The patient was admitted to the [facility] on 06/11. He underwent a right total knee arthroplasty without complication. During his stay he received 1 dose of Lovenox 40 mg on postop day 1, later than he restarted some dose of Eliquis. During his stay his incision remained clean, dry and intact without any surrounding erythema or discharge. During his stay he did have heart rate of less than 46, then for more than 15 minutes with frequent pauses. He also had hyponatremia to 133 and hyperkalemia to 5.4, both of which have normalized. Prior to discharge on 06/14/18, sodium was 135 and potassium was 5.0. His ionized calcium was low during his stay at 4.9 on day of discharge. He will need this repeated in 3 days. The patient met his goal for physical therapy, was deemed medically and orthopedically stable for discharge home. DISCHARGE MEDICATIONS: 1. Lidex 0.5% cream. 2. Amlodipine 10 mg p.o. q.a.m. 3. Vitamin D 5000 units q.a.m. 4. Omeprazole 20 mg p.o. q.a.m. 5. Please hold eplerenone 50 mg until he was spoken by Dr. Hammond. 6. Doxycycline 50 mg p.o. q.a.m. 6. Eliquis 5 mg p.o. b.i.d. 7. Viagra 100 mg p.o. at bed time p.r.n. 8. Tramadol 50 mg p.o. q. 6 hours p.r.n., max daily dose of 8. 9. Acetaminophen 975 mg p.o. q. 8 hours p.r.n. 10. Docusate 100 mg p.o. b.i.d. 11. Oxycodone 5 mg p.o. q.6 hours p.r.n. max daily dose of 3. DISCHARGE PLAN: Weightbearing as tolerated. Okay to shower after the third postoperative day. Hold the eplerenone. He will need ionized calcium drawn in 3 days. Followup with the primary care provider. Pain control with Ultram 50 mg 1-2 tablets every 6 hours as needed for pain, maximum of 8 per day, oxycodone 5 mg tabs every 6 hours , max 3 per day. Follow up with Dr. Matthews in 4 weeks. Visiting home nurse will remove valerie in 10 to 12 days. ELZA JARAMILLO [id number]/CPS #: [id number] MTDD
== END 2018-06-14 13:38 | disposition home health service (06) | DRG 302 ==
LOC: AA 08:35 → SSU 16:22
PROVIDERS: ADMIT Orthopaedic Surgery; ATTEND Orthopaedic Surgery
PROC: 0SRC0J9 Replacement of Right Knee Joint with Synthetic Substitute, Cemented, Open Approach (ICD-10-PCS; principal; 2018-06-11 10:30)
DX: M17.11 Unilateral primary osteoarthritis, right knee (principal); Z68.43 Body mass index [BMI] 50.0-59.9, adult; I48.1 Persistent atrial fibrillation; I50.32 Chronic diastolic (congestive) heart failure; E87.1 Hypo-osmolality and hyponatremia; G47.33 Obstructive sleep apnea (adult) (pediatric); E66.01 Morbid (severe) obesity due to excess calories; I11.0 Hypertensive heart disease with heart failure; E74.39 Other disorders of intestinal carbohydrate absorption; Z96.652 Presence of left artificial knee joint; R00.1 Bradycardia, unspecified; E83.51 Hypocalcemia; K21.9 Gastro-esophageal reflux disease without esophagitis; L81.8 Other specified disorders of pigmentation; I08.3 Combined rheumatic disorders of mitral, aortic and tricuspid valves; I77.819 Aortic ectasia, unspecified site; E87.5 Hyperkalemia; I48.2 Chronic atrial fibrillation; Z86.711 Personal history of pulmonary embolism; Z90.49 Acquired absence of other specified parts of digestive tract; Z98.84 Bariatric surgery status; Z80.3 Family history of malignant neoplasm of breast; Z80.1 Family history of malignant neoplasm of trachea, bronchus and lung; Z88.1 Allergy status to other antibiotic agents; Z91.018 Allergy to other foods; Z72.89 Other problems related to lifestyle; Z98.49 Cataract extraction status, unspecified eye; Z87.01 Personal history of pneumonia (recurrent); Z82.3 Family history of stroke; Z83.49 Family history of other endocrine, nutritional and metabolic diseases; Z82.5 Family history of asthma and other chronic lower respiratory diseases; Z81.1 Family history of alcohol abuse and dependence; Z83.3 Family history of diabetes mellitus; Z82.49 Family history of ischemic heart disease and other diseases of the circulatory system; Z79.01 Long term (current) use of anticoagulants
CPT/HCPCS: 36415; 80048; 80053; 82330; 83735; 84100; 85014; 85018; 85025; 85049; 88305; 88311; 93005; A9270-GY; C1776; J0330; J0610; J0690; J1100; J1650; J2250; J2270; J2405; J2704; J3010

== ENCOUNTER 2018-11-03 18:53 | Inpatient (IN) | payer BC ==
[2018-11-03] MEDS ORDERED: Furosemide IV* 10 MG/ML VIAL (40 MG) IV SLOW PU ONE (19:27)
--- NOTE | 2018-11-03 19:30 | ED ---
Lower Extremity - HPI Summary HPI Summary: The patient is a 63 y/o M presenting to [facility] with a chief complaint of increasing lymph fluid accumulation with edema in the BLE and genital area with gradual worsening over the past few weeks He has hx of chronic lymph edema that has caused him to gain weight, but the swelling has increased more than usual. He states that he used to be able to swim 1000 yds, but he has unable to swim as far with the increase in swelling causing him to lose energy more quickly. SOB with exertion has additionally accompanied his symptoms. He denies CP, heart palpitations, and abd pain. He wears a BiPAP at night and sleeps in a chair, but he does not report any difficulty sleeping. He states that he was sick a few days ago with nausea and diarrhea, but those symptoms have resolved. The pt takes Amlodapine and Indomethacin for BP control, and Eliquis for Afib. He spoke with Dr. Hammond today concerning the changes in his lymph edema, and he recommended that the pt come into the ED for lymph drainage. - History of Current Complaint Chief Complaint: EDGeneral Stated Complaint: SHORT OF BREATH Time Seen by Provider: 11/03/18 19:13 Hx Obtained From: Patient Mechanism Of Injury: Other - chronic lymph edema Onset of Pain: Days - a few weeks Onset/Duration: Still Present Severity Initially: Moderate Severity Currently: Moderate Pain Intensity: 0 Pain Scale Used: 0-10 Numeric Timing: Lasting Weeks Location: Other - BLE and genital area Associated Signs And Symptoms: Positive: Swelling - BLE and genital area, Other - POSITIVE: SOB with exertion; NEGATIVE: CP, heart palpitations, abd pain Aggravating Factor(s): Other - exertion aggravates SOB Alleviating Factor(s): Rest Able to Bear Weight: Yes Related History: Other - chronic lymph edema - Allergies/Home Medications Allergies/Adverse Reactions: Allergies Allergy/AdvReac Type Severity Reaction Status Date / Time cephalexin Allergy Severe Hives Verified 11/03/18 18:57 clindamycin Allergy Severe Hives Verified 11/03/18 18:57 fish oil Allergy Severe Hives Verified 11/03/18 18:57 Tetracyclines Allergy Severe Hives Verified 11/03/18 18:57 SOME DRESSING WRAPS Allergy Intermediate SKIN IS Uncoded 11/03/18 18:57 SENSITIVE Home Medications: Home Medications Eplerenone [Inspra] 12.5 mg PO DAILY 11/03/18 [History Confirmed 11/03/18] PMH/Surg Hx/FS Hx/Imm Hx Endocrine/Hematology History: Reports: Hx Diabetes - glucose intolerance Cardiovascular History: Reports: Hx Congestive Heart Failure - [address] HAMMOND, Hx Hypertension, Other Cardiovascular Problems/Disorders - Hx of heart murmur, HTN W/MEDS Denies: Hx Angina, Hx Coronary Artery Disease, Hx Hypercholesterolemia, Hx Myocardial Infarction, Hx Peripheral Vascular Disease, Hx Valvular Heart Disease Respiratory History: Reports: Hx Pneumonia, Hx Pulmonary Embolism - associated with CHF, Hx Sleep Apnea Denies: Hx Asthma, Hx Chronic Obstructive Pulmonary Disease (COPD) GI History: Reports: Hx Gastroesophageal Reflux Disease - on omeprazole-had gastric sleeve History: Denies: Hx Dialysis, Hx Renal Disease Musculoskeletal History: Reports: Hx Arthritis, Hx Bursitis - SHOULDERS, Hx Tendonitis - RIGHT ELBOW- STATES RELATED TO LIFTING Denies: Hx Osteoporosis Sensory History: Reports: Hx Contacts or Glasses Denies: Hx Cataracts, Hx Glaucoma, Hx Hearing Aid Opthamlomology History: Reports: Hx Contacts or Glasses Denies: Hx Cataracts, Hx Glaucoma Neurological History: Reports: Hx Migraine - NOT FOR YRS Denies: Hx Dementia, Hx Headaches, Hx Seizures, Hx Transient Ischemic Attacks (TIA) Psychiatric History: Denies: Hx Anxiety, Hx Depression - Cancer History Hx Chemotherapy: No - Surgical History Surgery Procedure, Year, and Place: 1960 TONSILS AND ADENOIDS [facility]. SEVERAL SKIN PROCEDURES TO REMOVE EXCESS SKIN AND LIPOMA [facility]. 2007 LAP BAND [facility]. 2010 JB [facility] Hx Anesthesia Reactions: No Infectious Disease History: No Infectious Disease History: Denies: Traveled Outside the [place] in Last 30 Days - Family History Known Family History: Positive: Hypertension - father and mother, Diabetes - maternal grandmother, Other - CA - lung (paternal), melanoma (paternal), brain ( maternal) Negative: Cardiac Disease - Social History Lives: With Family Alcohol Use: None Alcohol Amount: after dinner drink, but stoppped for surgery Hx Substance Use: No Substance Use Type: Reports: None Hx Tobacco Use: No Smoking Status (MU): Never Smoked Tobacco Do You Chew or Dip Tobacco: No Review of Systems Negative: Palpitations, Chest Pain Positive: Shortness Of Breath - with exertion Positive: Diarrhea - a few days ago - resolved, Nausea - a few days ago - resolved Positive: Edema - lymph accumulation in BLE and genital area Neurological: Other - NEGATIVE: sleep loss All Other Systems Reviewed And Are Negative: Yes Physical Exam - Summary Physical Exam Summary: Appearance: Well-appearing, obese, lying in bed comfortably Skin: Warm, dry, no obvious rash Eyes: sclera anicteric, no conjunctival pallor ENT: mucous membranes moist, pharynx appears normal Neck: Supple, nontender Respiratory: Clear to auscultation, no signs of respiratory distress Cardiovascular: Normal S1, S2. No murmurs. Regularly irregular distal pulses in tibial and radial bilaterally. Abdomen: Soft, nontender, normal active bowel sounds present Musculoskeletal: Strength/ROM Intact, marked chronic lymph edema changes with superimposed acute fluid retention/peripheral edema extending to the scrotum and perineum Neurological: A&Ox3, awake and alert, mentation is normal, speech is fluent and appropriate Psychiatric: affect is normal, does not appear anxious or depressed Triage Information Reviewed: Yes Vital Signs On Initial Exam: Initial Vitals Temp Pulse Resp BP Pulse Ox 97.5 F 79 16 154/78 94 11/03/18 18:59 11/03/18 18:59 11/03/18 18:59 11/03/18 18:59 11/03/18 18:59 Vital Signs Reviewed: Yes Diagnostics - Vital Signs Vital Signs Temp Pulse Resp BP Pulse Ox 11/03/18 18:59 97.5 F 79 16 154/78 94 - Laboratory Result Diagrams: 11/03/18 19:31 11/03/18 19:31 Lab Statement: Any lab studies that have been ordered have been reviewed, and results considered in the medical decision making process. - Radiology CXR Radiology Interpretation Completed By: Radiologist Summary of Radiographic Findings: Mild vascular congestion with bilateral effusions; new compared to prior film. ED physician has reviewed this report. - EKG 20:08 Cardiac Rate: NL - 70BPM EKG Rhythm: Atrial Fibrillation Summary of EKG Findings: No STEMI. Re-Evaluation - Re-Evaluation First Eval Re-Evaluation Time: 20:38 Change: Improved Comment: I spoke with the patient concerning admission [place] [facility] He agrees with this plan. Lower Extremity Course/Dx - Course Course Of Treatment: The patient is a 63 y/o M presenting to [facility] with a chief complaint of increasing lymph fluid accumulation with edema in the BLE and genital area for the past few weeks. He has hx of chronic lymph edema that has caused him to gain weight, but the swelling has increased more than usual. He additionally c/o SOB and loss of energy with exertion. He denies CP, heart palpitations, and abd pain. He wears a BiPAP at night and sleeps in a chair, but he does not report any difficulty sleeping. He states that he was sick a few days ago with nausea and diarrhea, but those symptoms have resolved. The pt takes Amlodapine and Indomethacin for BP control, and Eliquis for Afib. Upon physical exam, the patient is obese with regularly irregular pulses and marked chronic lymph edema changes with superimposed acute fluid retention/peripheral edema extending to the scrotum and perineum. In the ED course, the patient was given Furosemide. Blood work reveals decreased lymphs and elevated B- Natriuretic peptide. UA reveals protein. EKG shows Afib, unchanged from previous. CXR reveals mild vascular congestion with bilateral effusions; new compared to prior film. He is diagnosed with peripheral edema and renal insufficiency. I consulted with Dr. Porter, hospitalist, who accepts the patient for admission at 20:32. He agrees with this plan and understands the need for admission. - Diagnoses Provider Diagnoses: CHF (congestive heart failure) - Physician Notifications Discussed Care Of Patient With: Maddie Porter - hospitalist Time Discussed With Above Provider: 20:32 Instructed by Provider To: Admit As Observation - I consulted with Dr. Porter, who accepts the patient for admission. Discharge - Sign-Out/Discharge Documenting (check all that apply): Patient Departure - Patient will be admitted [place] [facility] [place] further care by Dr. Porter. - Discharge Plan Condition: Stable Disposition: ADMITTED TO [facility] - Billing Disposition and Condition Condition: STABLE Disposition: Admitted to [facility] - Attestation Statements Document Initiated by Gray: Yes Documenting Scribe: Libby Helm Provider For Whom Gray is Documenting (Include Credential): MD Abbey Bernardoibseth Attestation: Libby Hughes scribed for Dr. Patel Rodriguez MD on 11/03/18 at 8623. Scribe Documentation Reviewed: Yes Provider Attestation: The documentation as recorded by the Libby narayanan accurately reflects the service I personally performed and the decisions made by me, Dr. Patel Rodriguez MD Status of Scrariel Document: Viewed
[2018-11-03 19:40] LABS: ABS Basophils 0 10^3/ul (0-0.2); ABS Eosinophils 0.1 10^3/ul (0-0.6); ABS Lymphocytes 0.5 10^3/ul (1.0-4.8); ABS Monocytes 0.5 10^3/ul (0-0.8); ABS Neutrophils 2.4 10^3/ul (1.5-7.7); ABS Nucleated RBC 0 10^3/ul; Eosinophil % 2.4 %; Hematocrit 36 % (42-52); Hemoglobin 11.6 g/dl (14.0-18.0); Lymphocyte % 13.4 %; Mean Corpuscular HGB Conc 32 g/dl (31-36); Mean Corpuscular Hemoglobin 28 pg (27-31); Mean Corpuscular Volume 89 fL (80-94); Mean Platelet Volume 6.9 fL (7.4-10.4); Nucleated Red Blood Cells % 0; Platelet Count 193 10^3/ul (150-450); Red Blood Count 4.09 10^6/ul (4.00-5.40); Red Cell Distribution Width 17 % (10.5-15); White Blood Count 3.4 10^3/ul (3.5-10.8)
[2018-11-03 19:57] LABS: Albumin 3.6 g/dL (3.2-5.2); Albumin/Globulin Ratio 1.4 (1-3); BUN/Creatinine Ratio 18.8 (8-20); Calcium 8.5 mg/dL (8.6-10.3); EGFR Non-African American 78.9 (>60); Globulin 2.5 g/dL (2-4); Potassium 3.9 mmol/L (3.5-5.0); Total Bilirubin 0.4 mg/dL (0.2-1.0); Total Protein 6.1 g/dL (6.4-8.9)
[2018-11-03 20:44] LABS: Urine Appearance Clear; Urine Bacteria Absent (Absent); Urine Bilirubin Negative (Negative); Urine Blood Negative (Negative); Urine Color Yellow; Urine Glucose Negative (Negative); Urine Ketones Negative (Negative); Urine Nitrite Negative (Negative); Urine Protein 2+(100 mg/dL) (Negative); Urine Red Blood Cell Trace(0-2/hpf) (Absent); Urine Specific Gravity 1.014 (1.010-1.030); Urine Urobilinogen Negative (Negative); Urine White Blood Cell Trace(0-5/hpf) (Absent)
[2018-11-03] MEDS: Acetaminophen TAB* 325 MG PO PRN (23:20)
--- NOTE | 2018-11-03 23:53 | HP ---
CC: Dr. Kiran; Dr. Hammond* [facility] MEDICINE HISTORY AND PHYSICAL: DATE OF ADMISSION: 11/03/18 PRIMARY CARE PROVIDER: Dr. Kiran. DIRECTOR DIVERSITY: Dr. Hammond. ATTENDING PHYSICIAN: Dr. Stefanie Kumar* (dictation provided by Maddie Porter NP). CHIEF COMPLAINT: Weight gain, leg swelling, and shortness of breath. HISTORY OF PRESENT ILLNESS: Mr. Argueta is a 63-year-old male with a past medical history of atrial fibrillation; diastolic CHF; obstructive sleep apnea, on CPAP; morbid obesity, who presents to the hospital today with concern for weight gain, leg swelling, and shortness of breath. Mr. Argueta states that he was doing well in the summer. He had had right knee surgery with Dr. Matthews in March 2018 and a left knee surgery in June 2018. He felt that through the summer, he was losing weight and that he recovered well from his knee surgeries. However, on and around mid September, he noticed that his legs were very swollen. He swims frequently and noticed also that he was not able to do his normal 1000 yards of swimming, but was only able to do 600 yards before becoming quite winded. He noticed his legs were swollen because it was more difficult to remove his bathing suit. He went to see Dr. Kiran in early September and was diagnosed with lymphedema and had to go to the lymphedema clinic which he complied with. He has been following there and has received 4 treatments. He also has a machine at home with sleeves that he uses on a daily basis. He states there has been some improvement in the swelling of his legs at times, but that it has not improved his ongoing shortness of breath. He saw Dr. Castillo on 10/25/18, and at that time, Dr. Castillo documents that the patient had a 70-pound weight gain. He is not able to characterize over what period of time this weight gain occurred. The patient states that he went to [place] yesterday to visit family, and while there, he was very uncomfortable and felt edematous and swollen. He had difficulty walking even to the bathroom due to shortness of breath. He also has recently contracted a mild GI bug from the small children with whom he was staying on [place]. He described some infrequent diarrhea with this. He was quite concerned by how poorly he was feeling yesterday and called Dr. Hammond's office, who recommended that he come to the emergency room for evaluation. He drove home from [place] and then presented today. He denies chest pain. He denies cough. He denies nausea, vomiting. He has had diarrhea as noted. He has no abdominal pain. In the emergency room, Mr. Argueta had labs which were essentially unremarkable. His BNP was 231. His chest x-ray by my read shows congestive heart failure. He has obvious lower extremity edema and also edema of the scrotum and lower abdomen. The patient was then given 80 mg of Lasix in the ED with good urine output from a Fernandez that was placed here. PAST MEDICAL HISTORY: 1. History of atrial fibrillation. 2. Gastric sleeve in 2013. 3. History of PE, 2013. 4. Hypertension. 5. Obstructive sleep apnea, on CPAP. 6. History of a CHF exacerbation in 2003. 7. History of right knee surgery in March 2018. 8. History of left knee surgery in June 2018. ALLERGIES: CEPHALEXIN, CLINDAMYCIN, FISH OIL, and TETRACYCLINE. FAMILY HISTORY: Father had lung cancer. Mother had brain cancer. SOCIAL HISTORY: No report of alcohol, tobacco, or drug use. The patient lives with his , who would be the healthcare proxy. REVIEW OF SYSTEMS: A 14-point review of systems was completed with Mr. Agrueta and all those not mentioned above were negative. PHYSICAL EXAMINATION GENERAL: Mr. Argueta is sitting up in the bed. He is in no acute distress. VITAL SIGNS: Temperature 97.5, pulse rate 79, respiratory rate 16, O2 saturation 94% on room air, blood pressure 154/78. LUNGS: Clear to auscultation bilaterally with no accessory muscle use and good aeration. HEART: S1, S2. No murmur, rub, or gallop and regular. ABDOMEN: Soft and nontender with bowel sounds positive x4. EXTREMITIES: 2+ edema with chronic venous stasis changes. There is edema noted to the scrotum and penis and lower abdomen. NEURO: He is alert, he is oriented x3. He moves all extremities equally. There is no facial asymmetry or focal weakness. Extraocular movements are intact. SKIN: Intact. DIAGNOSTIC STUDIES/LAB DATA: Sodium 141, potassium 3.9, chloride 107, serum bicarbonate 31, BUN 18, creatinine 0.96, glucose 123. Troponin 0.02. BNP 231. WBC 3.4, hemoglobin 11.6, hematocrit 36, platelet count 193. Urine shows no evidence of infection. Chest x-ray shows evidence of pulmonary edema and vascular congestion. EKG shows atrial fibrillation with a heart rate about 60. ASSESSMENT: Mr. Argueta is a 63-year-old male with a past medical history of a severe diastolic congestive heart failure exacerbation related to cor pulmonale in 2003 as well as morbid obesity, history of pulmonary embolus, atrial fibrillation, who presents to the hospital today with concern for significant weight gain, lower extremity edema, and shortness of breath. Our plans are for inpatient admission as expected length of stay would be greater than 2 days for the followin. Lower extremity edema, shortness of breath, and weight gain: The overall picture is consistent with an [id number] diastolic congestive heart failure exacerbation. The patient's last echocardiogram was from January 2018 and showed a normal ejection fraction. No significant valvular abnormalities. However, since he has not had a congestive heart failure exacerbation like this except for that episode in 2003, I think he does warrant a repeat echo during this hospitalization. The patient has been given 80 mg of Lasix in the ED with excellent urine output via Fernandez placed here today. Plan to continue with 40 b.i.d. We will check labs in the a.m. to monitor electrolytes and creatinine closely. He will have I's and O's. He will have daily weights. He will have a heart-healthy, low-salt diet. 2. Obstructive sleep apnea: Continue CPAP. 3. Hypertension: The patient is on amlodipine and eplerenone at home. Plan to hold while diuresing. 4. History of deep venous thrombosis, pulmonary embolus, and atrial fibrillation: Continue Eliquis. 4. Gastroesophageal reflux disease: Continue omeprazole. 5. DVT prophylaxis with Eliquis. 6. Code status is full code. TIME SPENT: Approximately 60 minutes was spent in admission of this patient, more than half of the time was spent with the patient at the bedside reviewing the events leading up to this hospitalization, performing the physical examination, and reviewing the plan of care. MADDIE PORTER NP [id number]/[facility] #: [id number] [facility]ITALJack
[2018-11-04 07:36] LABS: BUN/Creatinine Ratio 16.7 (8-20); Calcium 8.7 mg/dL (8.6-10.3); EGFR Non-African American 78.9 (>60); Potassium 3.9 mmol/L (3.5-5.0)
[2018-11-04] MEDS: Omeprazole CAP (NF) 20 MG CAP.DR PO SCH (07:53)
[2018-11-04] MEDS: Apixaban* 5 MG TAB PO SCH ×2 (07:53→20:08)
[2018-11-04] MEDS: Acetaminophen TAB* 325 MG PO PRN (07:53)
[2018-11-04] MEDS: Docusate CAP* 100 MG PO SCH ×2 (07:54→20:07)
[2018-11-04] MEDS: Furosemide IV* 10 MG/ML VIAL (40 MG) IV SCH ×2 (07:54→16:53)
[2018-11-04 09:16] LABS: Magnesium 1.7 mg/dL (1.9-2.7)
[2018-11-04] MEDS ORDERED: Magnesium Sulfate 2 GM IV* 2 GM/50 ML BAG IVPB ONE (11:00)
--- NOTE | 2018-11-04 23:29 | PN ---
Subjective Date of Service: 11/04/18 Interval History: patient reports shortness of breath has improved, swelling to lower ext. and scrotum is improving. Denies chest pain. Denies abd pain n/v/d. denies cough , fever or chills Family History: Unchanged from Admission Social History: Unchanged from Admission Past Medical History: Unchanged from Admission Objective Active Medications: Acetaminophen (Tylenol Tab*) 650 mg PO Q6H PRN PRN Reason: PAIN Last Admin: 11/04/18 07:53 Dose: 650 mg Apixaban (Eliquis*) 5 mg PO BID [facility] Last Admin: 11/04/18 20:08 Dose: 5 mg Docusate Sodium (Colace Cap*) 100 mg PO BID [facility] Last Admin: 11/04/18 20:07 Dose: Not Given Furosemide (Lasix Iv*) 40 mg IV 0800,1700 [facility] Last Admin: 11/04/18 16:53 Dose: 40 mg Omeprazole (Prilosec Cap*) 20 mg PO QAM [facility] Last Admin: 11/04/18 07:53 Dose: 20 mg Vital Signs - 8 hr 11/04/18 11/04/18 19:26 19:48 Temperature 98.2 F Pulse Rate 62 Respiratory 16 20 Rate Blood Pressure 148/65 (mmHg) O2 Sat by Pulse 94 Oximetry Oxygen Devices in Use Now: CPAP Appearance: appears comfortable sitting on the edge of the bed. no acute distress Eyes: No Scleral Icterus Ears/Nose/Mouth/Throat: Clear Oropharnyx, Mucous Membranes Moist Neck: NL Appearance and Movements; NL JVP, Trachea Midline Respiratory: Symmetrical Chest Expansion and Respiratory Effort, - - diminished in the bases bilat, few crackles in the bases Cardiovascular: - - lower ext with edema bilat Abdominal: NL Sounds; No Tenderness; No Distention Extremities: No Clubbing, Cyanosis, - - brownish discoloration to bilat lower ext, edema noted to bilat lower legs Skin: No Rash or Ulcers Neurological: Alert and Oriented x 3 Nutrition: Taking PO's Result Diagrams: 11/05/18 05:51 11/05/18 05:51 Assess/Plan/Problems-Billing Assessment: Mr. Argueta is a 63 y.o male with pmhx of a fib, cad, hld, morbid obesity and htn who presented to the emergency room with increased shortness of breath, weight gain consistent with clionical picture of congestive heart failure. - Patient Problems (1) Shortness of breath Current Visit: Yes Status: Acute Code(s): R06.02 - SHORTNESS OF BREATH SNOMED Code(s): 098001657 Comment: Suspect this is related to acute on chronic diastolic CHF- continues to have good urine output in the corea - Will continue lasix BID - Will continue strit i/o - continue daily weights - repeat BMP and magnesium in th AM - TTE pending for tomorrow (2) Hypomagnesemia Current Visit: Yes Status: Acute Code(s): E83.42 - HYPOMAGNESEMIA SNOMED Code(s): 917623755 Comment: Magnesium 1.7 today will give 2 grams of magnesium - repeat magnesium level in the AM (3) GERD (gastroesophageal reflux disease) Current Visit: No Status: Acute Code(s): K21.9 - GASTRO-ESOPHAGEAL REFLUX DISEASE WITHOUT ESOPHAGITIS SNOMED Code(s): 567560014 Comment: -Continue Omeprazole (4) HTN (hypertension) Current Visit: No Status: Acute Code(s): I10 - ESSENTIAL (PRIMARY) HYPERTENSION SNOMED Code(s): 14888762 Comment: -will resume Amlodipine tomorrow (5) Hx pulmonary embolism Current Visit: No Status: Acute Code(s): Z86.711 - PERSONAL HISTORY OF PULMONARY EMBOLISM SNOMED Code(s): 989956926 Comment: - Patient at highest risk for DVT due to morbid obesity, hx of PE - Continue Eliquis (6) Sleep apnea Current Visit: No Status: Acute Code(s): G47.30 - SLEEP APNEA, UNSPECIFIED SNOMED Code(s): 27722569 Comment: - Continue CPAP used at home (7) DVT prophylaxis Current Visit: No Status: Acute Code(s): HSR7668 - SNOMED Code(s): 534070381 Comment: -On Eliquis (8) Full code status Current Visit: No Status: Acute Code(s): Z78.9 - OTHER SPECIFIED HEALTH STATUS SNOMED Code(s): 680316236
[2018-11-05] MEDS: Artificial Tears* 15 ML BTL BOTH EYES PRN ×2 (01:43→04:12)
[2018-11-05] MEDS: Acetaminophen TAB* 325 MG PO PRN (03:26)
[2018-11-05] MEDS ORDERED: Magnesium Sulfate 2 GM IV* 2 GM/50 ML BAG IVPB ONE ×2 (04:51→11:00)
[2018-11-05 06:47] LABS: Hematocrit 38 % (42-52); Hemoglobin 12.2 g/dl (14.0-18.0); Mean Corpuscular HGB Conc 32 g/dl (31-36); Mean Corpuscular Hemoglobin 28 pg (27-31); Mean Corpuscular Volume 88 fL (80-94); Mean Platelet Volume 7.5 fL (7.4-10.4); Platelet Count 200 10^3/ul (150-450); Red Cell Distribution Width 17 % (10.5-15); White Blood Count 3.5 10^3/ul (3.5-10.8)
[2018-11-05 07:04] LABS: BUN/Creatinine Ratio 18.3 (8-20); Calcium 9.1 mg/dL (8.6-10.3); EGFR Non-African American 81.8 (>60); Magnesium 1.8 mg/dL (1.9-2.7); Potassium 3.7 mmol/L (3.5-5.0)
[2018-11-05] MEDS ORDERED: amLODIPine TAB* 5 MG PO SCH (09:00)
[2018-11-05] MEDS ORDERED: Perflutren Lipid Microsphere* 3 ML VIAL ONE (09:50)
[2018-11-05] MEDS: Furosemide IV* 10 MG/ML VIAL (40 MG) IV SCH (11:10)
[2018-11-05] MEDS: Docusate CAP* 100 MG PO SCH (11:11)
[2018-11-05] MEDS: Apixaban* 5 MG TAB PO SCH (11:12)
[2018-11-05] MEDS: Omeprazole CAP (NF) 20 MG CAP.DR PO SCH (11:13)
--- NOTE | 2018-11-05 12:04 | ECHO ---
Patient: OMEGA FERNANDEZ [facility] Rec#: [id number] : 1955 Date: 11/05/2018 Age: 63y Height: 193.04 cm / 76.0 in Weight: 213.19 kg / 469.9 lbs Sex: M BSA: 3.19 Room#: [facility] Admit Date#: 11/03/2018 Type: Inpatient Referring: Maddie Porter NP Reading: Jamie Collier MD Electronic Rep[employer] Troubleshooter: Lorin Leal RDCS CC: Jhon Hammond MD CC: Jung Kiran MD Transthoracic Echocardiogram Indication: CHF BP: 145/80 HR: 71 Rhythm: NSR with PVCs Findings History: Morbid obesity,a-fib,CHF,HTN,AMER[place] with CPAP. Technical Comments: The study is technically difficult. Completed at 1031. The study is technically limited due to patient body habitus. Definity used to enhance iamges. The study was technically limited due to the patient's inability to lay in the left lateral decubitus position. Left Ventricle: The left ventricular chamber size is normal. Moderate concentric left ventricular hypertrophy is observed. Global left ventricular wall motion and contractility are within normal limits. There is normal left ventricular systolic function. The estimated ejection fraction is 55-60%. The assessment of diastolic function is non-diagnostic. Left Atrium: The left atrium is moderate to severely dilated. Right Ventricle: The right ventricular cavity size is normal. The right ventricular global systolic function is normal. Right Atrium: The right atrium is moderately dilated. Aortic Valve: The aortic valve structure is not well visualized. The aortic valve leaflets are mildly thickened. There is no evidence of aortic regurgitation. There is no evidence of aortic stenosis. Highest aortic valve velocity was acquired with Pedoff in right sternal border position. Mitral Valve: The mitral valve leaflets are mildly thickened. There is mild mitral regurgitation. Tricuspid Valve: The tricuspid valve leaflets are normal. There is trace tricuspid regurgitation. Unable to estimate the right ventricular systolic pressure. Pulmonic Valve: The pulmonic valve structure is not well visualized. Pericardium: There is no significant pericardial effusion. A pericardial fat pad is visualized. Aorta: There is moderate dilatation of the ascending aorta. There is no dilatation of the aortic arch. Pulmonary Artery: The main pulmonary artery is not well visualized. Venous: The venous system is not well visualized. Contrast: Definity was used to optimize study. A total of 4 ml used. Intravenous contrast was used to enhance endocardial border definition. Conclusions There is normal left ventricular systolic function. The estimated ejection fraction is 55-60%. Global left ventricular wall motion and contractility are within normal limits. The left ventricular chamber size is normal. Moderate concentric left ventricular hypertrophy is observed. The left atrium is moderate to severely dilated. The right atrium is moderately dilated. There is mild mitral regurgitation. Since the prior echocardiogram completed 01/15/18, there appears to be little change. Measurements Name Value Normal Range RVIDd (AP) 2D 3.71 cm (0.9 - 2.6) RVDdMajor (2D) 3.1 cm (2.2 - 4.4) RAd ISD 4CH 6.2 cm (3.4 - 4.9) RA (A4C)W 5.3 cm (2.9 - 4.6) IVSd (2D) 1.38 cm (0.6 - 1) LVPWd (2D) 1.67 cm (0.6 - 1) LVIDd (2D) 5.05 cm (3.6 - 5.4) LVIDs (2D) 3.23 cm - LV FS (2D) 36.04 % (25 - 45) EF Teichholz (2D) 65.38 % - Aortic Annulus 2.6 cm (1.4 - 2.6) Ao root diameter (2D) 2.62 cm (2.1 - 3.5) Ascending Ao 4.26 cm (2.1 - 3.4) Aortic arch 2.67 cm (1.8 - 3.4) LA dimension (AP) 2D 4.4 cm (2.3 - 3.8) LAd ISD 4CH 7 cm (2.9 - 5.3) LA ISD 4CH W 4.7 cm (2.5 - 4.5) Name Value Normal Range LA ESV SP 4CH (A/L) 93.91 ml - LA ESV SP 2CH (A/L) 123.47 ml - LA ESV BP (A/L) 112.44 ml - LA ESV BP (A/L) index 35.25 ml/m2 - LA ESV SP 4CH (MOD) 87.02 ml - LA ESV SP 2CH (MOD) 115.91 ml - Name Value Normal Range MV E-wave Vmax 1.12 m/sec - MV deceleration time 227.18 msec - MV A-wave Vmax 0.24 m/sec - MV E:A ratio 4.59 ratio - LV septal e' Vmax 0.11 m/sec - LV lateral e' Vmax 0.12 m/sec - LV E:e' septal ratio 10 ratio - LV E:e' lateral ratio 9.16 ratio - Name Value Normal Range AV Vmax 1.66 m/sec - AV VTI 56.28 cm - AV peak gradient 11.38 mmHg - AV mean gradient 8.93 mmHg - LVOT diameter 2.44 cm - LVOT Vmax 1.37 m/sec - LVOT VTI 31.22 cm - LVOT peak gradient 7.55 mmHg - LVOT mean gradient 3.87 mmHg - SRINIVASAN (continuity Vmax) 3.88 cm2 - SRINIVASAN (continuity VTI) 2.6 cm2 - Name Value Normal Range MR Vmax 4.04 m/sec - MR VTI 143.23 cm -
[2018-11-05] MEDS ORDERED: Magnesium Oxide TAB* 400 MG PO ONE (13:21)
[2018-11-05 14:13] VITALS: BP 154/75
--- NOTE | 2018-11-06 12:56 | PN ---
Hospitalist Progress Note Date of Service: 11/06/18 called by patient unable to pick up worker medications that scripts were sent to do to them being closed for the holiday. re-ordered scripts to be sent to [facility] in [place] at patient request
--- NOTE | 2018-11-09 11:38 | DS ---
CC: Dr. Kiran * DISCHARGE SUMMARY: DATE OF ADMISSION: 11/03/18. DATE OF DISCHARGE: 11/05/18. PROVIDER: Dariana Jerry NP. ATTENDING PHYSICIAN WHILE IN THE HOSPITAL: Dr. Eufemia Powers * (dictated by Dariana Jerry NP). PRIMARY CARE PROVIDER: Dr. Kiran. PRIMARY DIAGNOSIS: Congestive heart failure with preserved ejection fraction. SECONDARY DIAGNOSES: 1. Atrial fibrillation. 2. History of pulmonary embolus, on Eliquis. 3. Hypertension. 4. Sleep apnea. 5. Lymphedema. STUDIES COMPLETED WHILE IN THE HOSPITAL: He had a transthoracic echocardiogram which showed there was normal left ventricular systolic function. The estimated ejection fraction was 55% to 60%. Global left ventricular wall motion and contractility were within normal limits. The left ventricular chamber size was normal, moderate concentric left ventricular hypertrophy was observed. The left atrium is moderately to severely dilated. The right atrium was moderately dilated. There was mild mitral regurg. When compared to echocardiogram 01/15/18, there appeared to be little change. He did have a chest x-ray on 11/03/18. Radiologist impression: Chest x-ray findings most consistent with cardiogenic pulmonary edema likely with a small left lung base pleural effusion. He had an electrocardiogram which atrial fibrillation at a rate of 70. DISCHARGE MEDICATIONS: New home medications: 1. Lasix 40 mg p.o. daily. 2. Magnesium oxide 400 mg p.o. daily. Continued home medications: 1. Amlodipine 10 mg p.o. daily. 2. Viagra 100 mg p.o. at bedtime p.r.n. 3. Multivitamin with iron 60 mg p.o. q.a.m. 4. Omeprazole 20 mg p.o. q.a.m. 5. Mentax cream topically t.i.d. as needed. 6. Inspira 12.5 mg p.o. daily. 7. Doxycycline 50 mg p.o. q.p.m. 8. Docusate 100 mg p.o. b.i.d. 9. Eliquis 5 mg p.o. b.i.d. 10. Acetaminophen 650 mg q.6 hours as needed. HISTORY OF PRESENT ILLNESS: Mr. Argueta is a 63-year-old male with a past medical history significant for pulmonary embolism, atrial fibrillation, remote history of congestive heart failure in 2003, lymphedema to the right leg, hypertension and sleep apnea, who presented to the emergency room with complaints of weight gain, leg swelling and increased shortness of breath. Mr. Argueta reported that he was doing well over the summer. He had right knee surgery with Dr. Matthews in March 2018 and a left knee surgery in June 2018. He reported that around September he noticed that his legs were swollen. He swims frequently and noticed also that he was unable to do his normal 1000 yards of swimming, but was only able to do 600 yards before coming quite winded. He noticed that his legs were swelling and it was more difficult to move it in his bathing suit. He went to see Dr. Kiran in early September and was diagnosed with lymphedema and had to go to a lymphedema clinic which he has so far received 4 treatments. He does report some decreased swelling in the legs, but ongoing shortness of breath. He saw Dr. Castillo on 10/25/18 and at that time, Dr. Castillo had documented that the patient had a 70 pound weight gain. He was not able to characterize how long this weight gain had occurred. Prior to admission, the patient reports that he even walking to the bathroom he was becoming very short of breath. Due to increased shortness of breath and increased swelling, he called Dr. Hammond's office who recommended that he come to the emergency room for further evaluation. While in the emergency room, Mr. Arugeta had routine lab work drawn which was essentially unremarkable. He did have a BMP that was 231. Chest x-ray had showed congestive heart failure and obvious lower extremity edema and also edema of the scrotum and lower abdomen. The patient was given Lasix 80 mg in the emergency room with good output. While in the hospital, we continued diuresis with the patient. During the hospitalization, the patient did have a documented 10-pound weight loss with diuresis. He did diurese approximately 10 to 11 L of fluid during this hospitalization. The patient does report that after starting diuretics, the patient reports that he is feeling better that his shortness of breath is improving and that he has been able to walk in laps in the hallway without shortness of breath. At this time, Mr. Argueta is stable for discharge home. REVIEW OF SYSTEMS: The patient denies any fever, chills. Denies any nausea, vomiting or diarrhea. He denies any shortness of breath or chest pain, palpitations. The patient continues to report some lower extremity swelling, which is improving. PHYSICAL EXAMINATION: General: Mr. Argueta is a 63-year-old, morbidly obese male, sitting on the edge of the bed. He is in no acute distress. He is alert and oriented x3. HEENT: Head is atraumatic, normocephalic. Eyes: EOMs are intact. Sclerae anicteric and not pale. Oral mucosa appeared to be moist. Neck is supple. Lungs are diminished in the bases bilaterally but clear. Cardiac: S1, S2. Irregular rate and rhythm. No murmurs, rubs, or gallops. Abdomen is rounded, obese, soft. Bowel sounds are present x4. Extremities: The patient has brownish discoloration to bilateral lower extremities. Skin is tight. He continues to have swelling in bilateral lower extremities. Neurologic: He is awake, alert and oriented x3. Speech is clear. Thought process is intact. No gross focal deficits. Skin: He does have a brownish discoloration to bilateral lower extremities with swelling. DISCHARGE PLAN: Mr Argueta will be discharged back home. Activity as tolerated. 1. Diastolic congestive heart failure with preserved ejection fraction. We will continue on Lasix 40 mg p.o. daily. 2. He should follow up with Dr. Kiran in 4 to 7 days. He should have a repeat BMP to monitor his potassium levels and the need to continue his diuresis. 3. Hypomagnesemia. I will place him on magnesium 400 mg p.o. daily. He should have a repeat magnesium level in 3 days and again follow up with Dr. Kiran in regard to continuing his magnesium. 4. Atrial fibrillation. Resume home medications as previously prescribed. He should continue on Eliquis. He is not on a rate control agent at this time. His heart rate is stable. 5. History of pulmonary embolism. He should continue on Eliquis as previously prescribed. The patient should follow up with Dr. Kiran in 4 to 7 days. He should have a repeat BMP and magnesium level in 3 days with results to Dr. Kiran. The patient was instructed to return to emergency room for any chest pain, shortness of breath, increased swelling, or any other concerning symptoms. This is a summarization of his hospitalization. For his further details, please see the entire medical record. TIME SPENT: Time spent on this discharge was 60 minutes, greater than half that time was spent [id number] with the patient discussing discharge plans and instructions. CONDITION ON DISCHARGE: Stable. DARIANA JERRY NP [id number]/CPS #: [id number] NITZA
== END 2018-11-05 16:50 | disposition home or self-care (01) | DRG 194 ==
LOC: ED 18:53 → MEDTELE 21:11
PROVIDERS: ADMIT Internal Medicine; ATTEND Internal Medicine
PROC: 5A09357 Assistance with Respiratory Ventilation, Less than 24 Consecutive Hours, Continuous Positive Airway Pressure (ICD-10-PCS; principal; 2018-11-03)
DX: I11.0 Hypertensive heart disease with heart failure (principal); Z68.44 Body mass index [BMI] 60.0-69.9, adult; I50.33 Acute on chronic diastolic (congestive) heart failure; G47.33 Obstructive sleep apnea (adult) (pediatric); I48.91 Unspecified atrial fibrillation; E66.01 Morbid (severe) obesity due to excess calories; K21.9 Gastro-esophageal reflux disease without esophagitis; N50.89 Other specified disorders of the male genital organs; I25.10 Atherosclerotic heart disease of native coronary artery without angina pectoris; E78.5 Hyperlipidemia, unspecified; E83.42 Hypomagnesemia; G43.909 Migraine, unspecified, not intractable, without status migrainosus; M19.90 Unspecified osteoarthritis, unspecified site; E11.9 Type 2 diabetes mellitus without complications; Z87.01 Personal history of pneumonia (recurrent); Z88.1 Allergy status to other antibiotic agents; Z91.013 Allergy to seafood; Z80.1 Family history of malignant neoplasm of trachea, bronchus and lung; Z80.8 Family history of malignant neoplasm of other organs or systems; Z98.84 Bariatric surgery status; Z86.718 Personal history of other venous thrombosis and embolism; Z86.711 Personal history of pulmonary embolism; Z83.3 Family history of diabetes mellitus
CPT/HCPCS: 36415; 71046; 80048; 80053; 81003; 81015; 83735; 83880; 84484; 85025; 85027; 87086; 93005; 93306; 94660; 99283; A9270-GY; C8929; J1940; J3475

== ENCOUNTER 2019-05-25 14:57 | Emergency (ER) | payer MEDICARE ==
[2019-05-25 15:18] VITALS: BP 121/70
--- NOTE | 2019-05-25 15:52 | UC ---
HPI Febrile Illness - HPI Summary HPI Summary: 64 year old male with past medical history significant for but not limited to A- fib on DOAC, morbid obesity, recent left hand cellulitis, HTN, H/p PE. Sleep Apnea, HTN and TKA who presents due to shaking chills earlier this morning. He finished antibiotics for left hand cellultitis one week ago. He denies current swelling nor pain of his hand nor other obvious source of infection. No recent uri, cough, dysuria nor other skin infections. He took ibuprofen 400mg about 3.5 hours ago which helped his fever/chills. He was instructed by his PCP to report to Urgent Care for blood cultures given his recent cellulitis. - History of Current Complaint Chief Complaint: UCGeneralIllness Time Seen by Provider: 05/25/19 15:10 Hx Obtained From: Patient Onset/Duration: Started Hours Ago Time of Onset: 08:00 Initial Severity: Severe - Awoke with shaking chills. Current Severity: Mild - low grade fever currently. 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 - Allergy/Home Medications Allergies/Adverse Reactions: Allergies Allergy/AdvReac Type Severity Reaction Status Date / Time cephalexin Allergy Severe Hives Verified 05/25/19 15:21 clindamycin Allergy Severe Hives Verified 05/25/19 15:21 fish oil Allergy Severe Hives Verified 05/25/19 15:21 Tetracyclines Allergy Severe Hives Verified 05/25/19 15:21 hydrocolloid dressing AdvReac Intermediate See Comment Verified 05/25/19 15:21 Home Medications: Home Medications Sildenafil Citrate [Viagra] 50 mg PO ONCE PRN MDD 100 mg 05/25/19 [History Confirmed 05/25/19] PMH/Surg Hx/FS Hx/Imm Hx Previously Healthy: Yes Cardiovascular History: Hypertension, Atrial Fibrillation, Deep Vein Thrombosis Respiratory History: Other - Sleep Apnea - Surgical History Surgical History: Yes Surgery Procedure, Year, and Place: 1960 TONSILS AND ADENOIDS [facility]. SEVERAL SKIN PROCEDURES TO REMOVE EXCESS SKIN AND LIPOMA [facility] [place]. 2007 LAP BAND [facility]. 2009 JB [facility] [place]. 2018 Bilateral knee replacement [facility] [place] - Family History Known Family History: Positive: Hypertension - father and mother, Diabetes - maternal grandmother, Other - CA - lung (paternal), melanoma (paternal), brain ( maternal) Negative: Cardiac Disease - Social History Alcohol Use: Daily Alcohol Amount: after dinner drink, but stoppped for surgery Substance Use Type: None Smoking Status (MU): Never Smoked Tobacco - Immunization History Most Recent Influenza Vaccination: 2018 Most Recent Tetanus Shot: UP TO DATE Most Recent Pneumonia Vaccination: 2011 Review of Systems All Other Systems Reviewed And Are Negative: Yes Constitutional: Positive: Fever Skin: Positive: Negative Eyes: Positive: Negative ENT: Positive: Negative Respiratory: Positive: Negative Gastrointestinal: Positive: Negative Genitourinary: Positive: Negative Motor: Positive: Negative Neurovascular: Positive: Negative Musculoskeletal: Positive: Negative Neurological: Positive: Negative Psychological: Positive: Negative Is Patient Immunocompromised?: No Physical Exam Triage Information Reviewed: Yes Appearance: Well-Appearing, No Pain Distress Vital Signs: Initial Vital Signs Temp 100.2 F 05/25/19 15:08 Pulse 84 05/25/19 15:08 Resp 16 05/25/19 15:08 BP 121/70 05/25/19 15:08 Pulse Ox 96 05/25/19 15:08 Vital Signs Reviewed: Yes Eye Exam: Normal ENT Exam: Normal Neck exam: Normal Neck: Positive: Supple, Nontender, No Lymphadenopathy Respiratory: Positive: Lungs clear, Normal breath sounds, No respiratory distress Cardiovascular Exam: Other - Irregular rate and rhythm, S1, S2, no murmur. Abdomen Description: Positive: Nontender, Soft, Other: - morbid obesity Male Genital Exam: Positive: Normal Genitalia Musculoskeletal Exam: Normal Neurological Exam: Normal Psychological Exam: Normal Skin Exam: Other - pannus, no cellulitis identified. Course/Dx - Course Course Of Treatment: Fever of unknown origin, recommend further evaluation. PCP recommended Blood Culture given recent cellulitis. Unable to do at Urgent Care age agreeable to further evaluation and testing at ED. - Febrile Illness Differential Diagnoses: Fever of Unknown Origin - Diagnoses Provider Diagnosis: Fever and chills Discharge - Sign-Out/Discharge Documenting (check all that apply): Patient Departure All imaging exams completed and their final reports reviewed: No Studies - Discharge Plan Condition: Stable Disposition: HOME-RECOMMEND TO ED Patient Education Materials: Fever in Adults (ED) Referrals: Jung Kiarn MD [Primary Care Provider] - Additional Instructions: Report to the Emergency Department for further evaluation of your fever. - Billing Disposition and Condition Condition: STABLE Disposition: Home-Recommend to ED
== END 2019-05-25 16:12 | disposition home health service (06) ==
LOC: UCEAST 14:57
DX: R50.9 Fever, unspecified (principal); I48.91 Unspecified atrial fibrillation; E66.9 Obesity, unspecified; I10 Essential (primary) hypertension; Z86.711 Personal history of pulmonary embolism; Z86.718 Personal history of other venous thrombosis and embolism
CPT/HCPCS: 99212; G0463

== ENCOUNTER 2019-05-25 16:34 | Emergency (ER) | payer MEDICARE ==
--- NOTE | 2019-05-25 17:29 | ED ---
Skin Complaint - HPI Summary HPI Summary: 64 yo male presents to [facility] with fever. He tells me that on 05/08 he saw his PCP for a left middle finger cellulitis and was placed on antibiotics for 10 days. He tells me that he completed the course of anbx and his cellulitis resolved. He has been feeling well since completing anbx on 05/18 until this morning. This morning he woke up and had a mild headache and felt feverish, but did not take his temp. His gave him tylenol around 0830 and covered him in blankets to "sweat out the fever". He woke up around noon and felt much better - he took some ibuprofen 400mg around this time. He called his PCP who recommended he be evaluated for labwork over concern the infection is "in the blood". Currently pt feels fine and admits to no symptoms. He denies recent illness, cellulitis, SOB, cough, chest pain, abdominal pain, n/v/d, dysuria. - History of Current Complaint Chief Complaint: EDFever Time Seen by Provider: 05/25/19 17:28 Stated Complaint: "FEVER PER PT COMING FROM [facility]" Hx Obtained From: Patient Skin Exposure Onset/Duration: Hours Ago Current Severity: None Pain Intensity: 0 - Additional Pertinent History Primary Care Physician: [id number] - Allergy/Home Medications Allergies/Adverse Reactions: Allergies Allergy/AdvReac Type Severity Reaction Status Date / Time cephalexin Allergy Severe Hives Verified 05/25/19 16:42 clindamycin Allergy Severe Hives Verified 05/25/19 16:42 fish oil Allergy Severe Hives Verified 05/25/19 16:42 Tetracyclines Allergy Severe Hives Verified 05/25/19 16:42 hydrocolloid dressing AdvReac Intermediate See Comment Verified 05/25/19 16:42 PMH/Surg Hx/FS Hx/Imm Hx Endocrine/Hematology History: Denies: Hx Diabetes Cardiovascular History: Reports: Hx Atrial Fibrillation, Hx Congestive Heart Failure - [address] REED, Hx Hypertension, Other Cardiovascular Problems/ Disorders - AFIB Denies: Hx Angina, Hx Coronary Artery Disease, Hx Hypercholesterolemia, Hx Myocardial Infarction, Hx Peripheral Vascular Disease, Hx Valvular Heart Disease Respiratory History: Reports: Hx Pneumonia, Hx Pulmonary Embolism - associated with CHF, Hx Sleep Apnea - uses CPAP Denies: Hx Asthma, Hx Chronic Obstructive Pulmonary Disease (COPD) GI History: Reports: Hx Gastroesophageal Reflux Disease - on omeprazole-had gastric sleeve History: Denies: Hx Dialysis, Hx Renal Disease Musculoskeletal History: Reports: Hx Arthritis, Hx Bursitis - SHOULDERS, Hx Tendonitis - RIGHT ELBOW- STATES RELATED TO LIFTING, Other Musculoskeletal History - Bilateral knee replacements Denies: Hx Osteoporosis Sensory History: Reports: Hx Contacts or Glasses Denies: Hx Cataracts, Hx Glaucoma, Hx Hearing Aid Opthamlomology History: Reports: Hx Contacts or Glasses Denies: Hx Cataracts, Hx Glaucoma Neurological History: Reports: Hx Migraine - NOT FOR YRS Denies: Hx Dementia, Hx Headaches, Hx Seizures, Hx Transient Ischemic Attacks (TIA) Psychiatric History: Denies: Hx Anxiety, Hx Depression - Cancer History Hx Chemotherapy: No - Surgical History Surgery Procedure, Year, and Place: 1960 TONSILS AND ADENOIDS [facility]. SEVERAL SKIN PROCEDURES TO REMOVE EXCESS SKIN AND LIPOMA [facility]. 2007 LAP B[facility]. 2009 JB [facility]. 2018 Bilateral knee replacement [facility] Hx Anesthesia Reactions: No Infectious Disease History: No Infectious Disease History: Denies: Traveled Outside the [place] in Last 30 Days - Family History Known Family History: Positive: Hypertension - father and mother, Diabetes - maternal grandmother, Other - CA - lung (paternal), melanoma (paternal), brain ( maternal) Negative: Cardiac Disease - Social History Lives: With Family Alcohol Use: Daily Alcohol Amount: after dinner drink, but stoppped for surgery Hx Substance Use: No Substance Use Type: Reports: None Hx Tobacco Use: No Smoking Status (MU): Never Smoked Tobacco Review of Systems Constitutional: Negative Positive: Fever Eyes: Negative ENT: Negative Cardiovascular: Negative Respiratory: Negative Gastrointestinal: Negative Genitourinary: Negative Musculoskeletal: Negative Skin: Negative Neurological: Negative Psychological: Normal All Other Systems Reviewed And Are Negative: Yes Physical Exam - Summary Physical Exam Summary: GENERAL: NAD. Morbid obesity. SKIN: Skin tags b/l lower legs with severe stasis dermatitis. Skin checked on feet, legs, back, buttocks, groin, and torso - no areas of cellulitis or open wounds appreciated. HEENT: Head: AT/NC Eyes: PERRLA. EOM intact. Conjunctiva clear without inflammation or discharge. Ears: Hearing grossly normal. TMs intact, no bulging, erythema, or edema. Nose: Nasal mucosa pink and moist. NTTP maxillary and frontal sinus. Throat: Posterior oropharynx without exudates, erythema, or tonsillar enlargement. Uvula midline. NECK: Supple. Nontender. No lymphadenopathy. CHEST: CTAB. No r/r/w. No accessory muscle use. Breathing comfortably and in no distress. CV: Irregular. Pulses intact. Brisk cap refill. ABDOMEN: Soft. NTTP. Bowel sounds present MSK: FROM and 5/5 strength throughout. No edema. NEURO: Alert. PSYCH: Age appropriate behavior. Triage Information Reviewed: Yes Vital Signs On Initial Exam: Initial Vitals Temp Pulse Resp BP Pulse Ox 100.4 F 71 18 127/80 95 05/25/19 16:36 05/25/19 16:36 05/25/19 16:36 05/25/19 16:36 05/25/19 16:36 Vital Signs Reviewed: Yes Diagnostics - Vital Signs Vital Signs Temp Pulse Resp BP Pulse Ox 05/25/19 16:36 100.4 F 71 18 127/80 95 - Laboratory Lab Results: Laboratory Tests 05/25/19 05/25/19 05/25/19 18:00 18:00 18:00 WBC 11.1 H RBC 4.71 Hgb 14.5 Hct 43 MCV 92 MCH 31 MCHC 34 RDW 16 H Plt Count 174 MPV 7.4 Neut % (Auto) 91.2 Lymph % (Auto) 4.4 [place] % (Auto) 3.8 Eos % (Auto) 0.3 Baso % (Auto) 0.3 Absolute Neuts (auto) 10.1 H Absolute Lymphs (auto) 0.5 L Absolute Monos (auto) 0.4 Absolute Eos (auto) 0.0 Absolute Basos (auto) 0.0 Absolute Nucleated RBC 0.0 Nucleated RBC % 0.0 INR (Anticoag Therapy) 1.50 H APTT 39.5 H Sodium 137 Potassium 4.0 Chloride 102 Carbon Dioxide 29 Anion Gap 6 BUN 24 Creatinine 1.31 H Est GFR ( Amer) 66.4 Est GFR (Non-Af Amer) 54.9 BUN/Creatinine Ratio 18.3 Glucose 161 H Lactic Acid Calcium 9.2 Total Bilirubin 1.00 AST 19 ALT 13 Alkaline Phosphatase 81 Troponin I 0.01 C-Reactive Protein 102.28 H Total Protein 7.3 Albumin 4.0 Globulin 3.3 Albumin/Globulin Ratio 1.2 Urine Color Urine Appearance Urine pH Ur Specific [place] Urine Protein Urine Ketones Urine Blood Urine Nitrate Urine Bilirubin Urine Urobilinogen Ur Leukocyte Esterase Urine WBC (Auto) Urine RBC (Auto) Urine Bacteria Urine Glucose 05/25/19 05/25/19 18:00 18:21 WBC RBC Hgb Hct MCV MCH MCHC RDW Plt Count MPV Neut % (Auto) Lymph % (Auto) [place] % (Auto) Eos % (Auto) Baso % (Auto) Absolute Neuts (auto) Absolute Lymphs (auto) Absolute Monos (auto) Absolute Eos (auto) Absolute Basos (auto) Absolute Nucleated RBC Nucleated RBC % INR (Anticoag Therapy) APTT Sodium Potassium Chloride Carbon Dioxide Anion Gap BUN Creatinine Est GFR ( Amer) Est GFR (Non-Af Amer) BUN/Creatinine Ratio Glucose Lactic Acid 1.1 Calcium Total Bilirubin AST ALT Alkaline Phosphatase Troponin I C-Reactive Protein Total Protein Albumin Globulin Albumin/Globulin Ratio Urine Color Yellow Urine Appearance Cloudy Urine pH 5.0 Ur Specific [place] 1.020 Urine Protein 2+(100 mg/dl) A Urine Ketones Negative Urine Blood 1+ A Urine Nitrate Negative Urine Bilirubin Negative Urine Urobilinogen Negative Ur Leukocyte Esterase 3+ A Urine WBC (Auto) 3+(>20/hpf) A Urine RBC (Auto) 1+(3-5/hpf) A Urine Bacteria 3+ A Urine Glucose Negative Result Diagrams: 05/25/19 18:00 05/25/19 18:00 Lab Statement: Any lab studies that have been ordered have been reviewed, and results considered in the medical decision making process. Re-Evaluation - Re-Evaluation First Eval Re-Evaluation Time: 19:36 Comment: Discussed with Hospitalist Dr. Murrieta and he reviewed the chart - pt does not meet SIRS/Sepsis criteria and he recommends out patient treatment with cipro for 1 week and f/u with Urology this week for UTI Course/Dx - Course Course Of Treatment: Labs with elevated glucose - trending 130-170 over the last few years. States no DM dx. Also with slightly elevated creatinine - WNL compared to trend. Slight leukocytosis at 11, but trend is usually around 4.0. His UA does show a possible UTI, although he has had no dysuria or UTI symptoms. I discussed the case with Dr. Akers who recommends discussing with the hospitalist. I discussed the case with Dr. Murrieta as above. Will dc pt with dx of UTI and fever with rx for Cipro as recommended by hospitalist. He does have an interact with his BP med - I made him aware of this and advised him to routinely check his BP at home and if is low to stop taking the medication and call his PCP. Strict return precautions if he develops any symptoms or fever increases - otherwise f/u with PCP within 3-5 days. - Diagnoses Provider Diagnoses: UTI (urinary tract infection), Fever - Physician Notifications Discussed Care Of Patient With: Uday Akers - Recommends discussing with hospitalist given comorbidities and UTI with fever. Discharge - Sign-Out/Discharge Documenting (check all that apply): Patient Departure Patient Received Moderate/Deep Sedation with Procedure: No - Discharge Plan Condition: Stable Disposition: HOME Prescriptions: Ciprofloxacin TAB* [Cipro 500 MG TAB*] 500 mg PO BID #14 tab Patient Education Materials: Urinary Tract Infection in Men (DC), Fever in Adults (ED) Referrals: Rajesh Gilbert MD [Medical Doctor] - 3 Days Jung Kiran MD [Primary Care Provider] - 3 Days Additional Instructions: If you develop a continued fever, shortness of breath, chest pain, new or worsening symptoms - please call your PCP or go to the ED immediately. Take your antibiotic as directed. May take tylenol as directed for fever/discomfort. Please follow up with Urology and your Primary Doctor within 3-5 days for a recheck - Billing Disposition and Condition Condition: STABLE Disposition: Home
[2019-05-25 18:10] LABS: ABS Lymphocytes 0.5 10^3/ul (1.0-4.8); ABS Monocytes 0.4 10^3/ul (0-0.8); ABS Neutrophils 10.1 10^3/ul (1.5-7.7); Eosinophil % 0.3 %; Hematocrit 43 % (42-52); Hemoglobin 14.5 g/dL (14.0-18.0); Lymphocyte % 4.4 %; Mean Corpuscular HGB Conc 34 g/dL (31-36); Mean Corpuscular Hemoglobin 31 pg (27-31); Mean Corpuscular Volume 92 fL (80-94); Mean Platelet Volume 7.4 fL (7.4-10.4); Platelet Count 174 10^3/uL (150-450); Red Blood Count 4.71 10^6 /uL (4.18-5.48); Red Cell Distribution Width 16 % (10-15); White Blood Count 11.1 10^3/uL (3.5-10.8)
[2019-05-25 18:18] LABS: Activated Partial Thrombo Time 39.5 seconds (26.0-38.0); INR 1.5 (0.82-1.09)
[2019-05-25 18:27] LABS: Albumin/Globulin Ratio 1.2 (1-3); BUN/Creatinine Ratio 18.3 (8-20); C Reactive Protein 102.28 mg/L (<8.01); Calcium 9.2 mg/dL (8.6-10.3); EGFR African American 66.4 (>60); EGFR Non-African American 54.9 (>60); Globulin 3.3 g/dL (2-4); Total Protein 7.3 g/dL (6.4-8.9)
[2019-05-25 18:29] LABS: Troponin I 0.01 ng/mL (<0.04)
[2019-05-25 18:43] LABS: Urine Appearance Cloudy; Urine Bacteria 3+ (Absent); Urine Bilirubin Negative (Negative); Urine Blood 1+ (Negative); Urine Color Yellow; Urine Glucose Negative (Negative); Urine Ketones Negative (Negative); Urine Nitrite Negative (Negative); Urine Protein 2+(100 mg/dL) (Negative); Urine Red Blood Cell 1+(3-5/hpf) (Absent); Urine Urobilinogen Negative (Negative); Urine White Blood Cell 3+(>20/hpf) (Absent)
[2019-05-25] MEDS ORDERED: Ciprofloxacin TAB* 500 MG PO ONE (19:51)
[2019-05-25 20:17] VITALS: BP 169/95
--- NOTE | 2019-05-27 07:31 | PN ---
Progress Note - Progress Note Date of Service: 05/25/19 Note: Preliminary urine culture growing >100k e. coli. Pt. being tx with cipro. Pending final culture and sensitivity.
== END 2019-05-25 20:16 | disposition home or self-care (01) ==
LOC: ED 16:34
DX: R50.9 Fever, unspecified (principal); N39.0 Urinary tract infection, site not specified; Z88.1 Allergy status to other antibiotic agents; Z88.8 Allergy status to other drugs, medicaments and biological substances; I48.91 Unspecified atrial fibrillation; I50.9 Heart failure, unspecified; I11.0 Hypertensive heart disease with heart failure; Z86.711 Personal history of pulmonary embolism; K21.9 Gastro-esophageal reflux disease without esophagitis; Z98.84 Bariatric surgery status; Z79.899 Other long term (current) drug therapy; E66.9 Obesity, unspecified; Z86.718 Personal history of other venous thrombosis and embolism
CPT/HCPCS: 36415; 71045; 80053; 81003; 81015; 83605; 84484; 85025; 85610; 85730; 86140; 87040; 87077; 87086; 87186; 99212; 99282; A9270-GY; G0463

== ENCOUNTER 2021-04-03 17:03 | Inpatient (IN) ==
[2021-04-03] MEDS ORDERED: Clindamycin 600 MG/D5W BAG 600 MG/50 ML BAG IV ONE (18:31)
[2021-04-03] MEDS ORDERED: NS 0.9% IVPB SCH ×2 (19:00→20:44)
[2021-04-03] MEDS ORDERED: OXACILLIN IVPB SCH ×2 (19:00→20:44)
[2021-04-03 19:26] LABS: ABS Lymphocytes 0.6 10^3/ul (1.0-4.8); ABS Monocytes 0.9 10^3/ul (0-0.8); ABS Neutrophils 6.5 10^3/ul (1.5-7.7); Hematocrit 43 % (42-52); Hemoglobin 14.2 g/dL (14.0-18.0); Lymphocyte % 7.9 %; Mean Corpuscular HGB Conc 33 g/dL (31-36); Mean Corpuscular Hemoglobin 32 pg (27-31); Mean Corpuscular Volume 97 fL (80-94); Mean Platelet Volume 8.3 fL (7.4-10.4); Nucleated Red Blood Cells % 0.1; Platelet Count 118 10^3/uL (150-450); Red Blood Count 4.41 10^6 /uL (4.18-5.48); Red Cell Distribution Width 15 % (10-15); White Blood Count 8.1 10^3/uL (3.5-10.8)
[2021-04-03 19:43] LABS: Albumin 3.6 g/dL (3.2-5.2); Albumin/Globulin Ratio 1.1 (1-3); C Reactive Protein 207.76 mg/L (<8.01); Calcium 9.1 mg/dL (8.6-10.3); EGFR African American 24.1 (>60); EGFR Non-African American 19.9 (>60); Globulin 3.2 g/dL (2-4); Potassium 4.5 mmol/L (3.5-5.0); Total Bilirubin 0.7 mg/dL (0.2-1.0); Total Protein 6.8 g/dL (6.4-8.9)
[2021-04-03] MEDS ORDERED: NS 0.9% 1000 ml BAG 2,000 ML IV ONE (20:15)
[2021-04-03 20:56] LABS: Erythrocyte Sed Rate 35 mm/Hr (0-19)
[2021-04-03] MEDS ORDERED: Al Hydrox/Mg Hydrox/Simet LIQ 30 ML UDC PO PRN (23:35)
[2021-04-03 23:41] LABS: Urine Appearance Turbid; Urine Bilirubin Negative (Negative); Urine Blood 3+ (Negative); Urine Color Amber; Urine Glucose Negative (Negative); Urine Ketones Negative (Negative); Urine Nitrite Negative (Negative); Urine Protein 2+(100 mg/dL) (Negative); Urine Specific Gravity 1.016 (1.002-1.030); Urine Urobilinogen Negative (Negative)
[2021-04-03 23:55] LABS: Urine Bacteria Absent (Absent); Urine Red Blood Cell 3+(>10/hpf) (Absent); Urine White Blood Cell 3+(>20/hpf) (Absent)
[2021-04-04] MEDS: Oxacillin 2 GM in NS 0.9% 100 ml BAG 100 ML IVPB SCH ×7 (01:36→23:35)
[2021-04-04] MEDS: NS 0.9% 1000 ml BAG 1,000 ML IV SCH ×2 (01:36→16:10)
[2021-04-04 05:33] LABS: ABS Basophils 0.1 10^3/ul (0-0.2); ABS Lymphocytes 0.8 10^3/ul (1.0-4.8); ABS Monocytes 0.9 10^3/ul (0-0.8); ABS Neutrophils 6.6 10^3/ul (1.5-7.7); Eosinophil % 0.3 %; Hematocrit 41 % (42-52); Hemoglobin 13.7 g/dL (14.0-18.0); Lymphocyte % 9.2 %; Mean Corpuscular HGB Conc 33 g/dL (31-36); Mean Corpuscular Hemoglobin 32 pg (27-31); Mean Corpuscular Volume 97 fL (80-94); Platelet Count 123 10^3/uL (150-450); Red Blood Count 4.26 10^6 /uL (4.18-5.48); Red Cell Distribution Width 15 % (10-15); White Blood Count 8.3 10^3/uL (3.5-10.8)
[2021-04-04 05:48] LABS: Calcium 8.6 mg/dL (8.6-10.3); EGFR African American 25.6 (>60); EGFR Non-African American 21.1 (>60); Potassium 4.3 mmol/L (3.5-5.0)
[2021-04-04] MEDS ORDERED: Heparin 5000 UNITS/ML 1 mL VIAL SUBCUT SCH (06:00)
[2021-04-04] MEDS ORDERED: NS 0.9% 1000 ml BAG 1,000 ML IV SCH (17:45)
[2021-04-05] MEDS: Oxacillin 2 GM in NS 0.9% 100 ml BAG 100 ML IVPB SCH ×6 (03:52→23:51)
[2021-04-05 11:50] LABS: Calcium 8.2 mg/dL (8.6-10.3); EGFR African American 28.3 (>60); EGFR Non-African American 23.4 (>60); Potassium 4.5 mmol/L (3.5-5.0)
[2021-04-06] MEDS: Oxacillin 2 GM in NS 0.9% 100 ml BAG 100 ML IVPB SCH ×6 (03:44→23:35)
[2021-04-06 06:30] LABS: Hematocrit 41 % (42-52); Hemoglobin 13.5 g/dL (14.0-18.0); Mean Corpuscular HGB Conc 33 g/dL (31-36); Mean Corpuscular Hemoglobin 32 pg (27-31); Mean Corpuscular Volume 98 fL (80-94); Platelet Count 145 10^3/uL (150-450); Red Blood Count 4.16 10^6 /uL (4.18-5.48); Red Cell Distribution Width 15 % (10-15)
[2021-04-06 06:52] LABS: C Reactive Protein 120.64 mg/L (<8.01); Calcium 8.5 mg/dL (8.6-10.3); EGFR African American 33.6 (>60); EGFR Non-African American 27.8 (>60); Potassium 4.8 mmol/L (3.5-5.0)
[2021-04-06 07:30] LABS: ABS Lymphocytes 0.6 10^3/ul (1.0-4.8); ABS Monocytes 0.7 10^3/ul (0-0.8); ABS Neutrophils 4.6 10^3/ul (1.5-7.7); Eosinophil % 0.6 %; Lymphocyte % 10.3 %; Nucleated Red Blood Cells % 0.1
[2021-04-07] MEDS: Oxacillin 2 GM in NS 0.9% 100 ml BAG 100 ML IVPB SCH ×5 (03:45→20:17)
[2021-04-07 05:19] LABS: ABS Basophils 0.1 10^3/ul (0-0.2); ABS Eosinophils 0.1 10^3/ul (0-0.6); ABS Lymphocytes 0.5 10^3/ul (1.0-4.8); ABS Monocytes 0.7 10^3/ul (0-0.8); ABS Neutrophils 4.4 10^3/ul (1.5-7.7); Eosinophil % 1.3 %; Hematocrit 41 % (42-52); Hemoglobin 13.4 g/dL (14.0-18.0); Lymphocyte % 8.9 %; Mean Corpuscular HGB Conc 33 g/dL (31-36); Mean Corpuscular Hemoglobin 32 pg (27-31); Mean Corpuscular Volume 97 fL (80-94); Nucleated Red Blood Cells % 0.1; Platelet Count 164 10^3/uL (150-450); Red Blood Count 4.23 10^6 /uL (4.18-5.48); Red Cell Distribution Width 15 % (10-15); White Blood Count 5.8 10^3/uL (3.5-10.8)
[2021-04-07 05:33] LABS: Calcium 8.7 mg/dL (8.6-10.3); EGFR African American 43.5 (>60); Potassium 4.9 mmol/L (3.5-5.0)
[2021-04-08] MEDS: Oxacillin 2 GM in NS 0.9% 100 ml BAG 100 ML IVPB SCH ×7 (00:39→23:59)
[2021-04-08 06:29] LABS: EGFR African American 55.6 (>60)
[2021-04-08] MEDS ORDERED: Perflutren Lipid Microsphere 3 ML VIAL ONE (09:19)
[2021-04-09] MEDS: Oxacillin 2 GM in NS 0.9% 100 ml BAG 100 ML IVPB SCH ×2 (03:51→07:52)
[2021-04-09 06:18] LABS: Calcium 9.3 mg/dL (8.6-10.3); EGFR African American 64.9 (>60); EGFR Non-African American 53.6 (>60); Potassium 4.9 mmol/L (3.5-5.0)
[2021-04-09 09:34] VITALS: BP 129/111
== END 2021-04-09 16:40 | disposition home or self-care (01) | DRG 683 ==
LOC: ED 17:03 → MED 23:35
PROVIDERS: ADMIT Internal Medicine; ATTEND Internal Medicine